=== PATIENT | female | born 1965 | race Caucasian/White ===

== ENCOUNTER 2016-07-02 05:54 | Outpatient (CLI) | payer BC ==
[~2016-07-02] VITALS: Ht 157.5 cm; Wt 90.3 kg
[~2016-07-02 05:54] MED LIST: ALPR0.254; ASP81TEC; ASPI-587 PO; CRS350T PO; CYCL10TA9 PO; GABA-488; GLIM2TAB PO; GLIM4TAB PO; HYDR1TAB66 PO; LISI10TA PO; LVT.025T PO; MELO-195 PO; NAPR-243 PO; NAPR500T3; OMEP20CA12 PO; PROM25SU10 PR; RANI150T11; TRM50T PO
--- OUTSIDE RECORDS SUMMARY | 2016-07-02 05:58 | XMS REPORT | Continuity of Care Document ---
Author Author [facility] Organization [facility] Address Unknown Phone Unavailable Care Team Providers Care Pediatric Associate Name Role Phone MARYCRUZ AKERS DO PCP Insurance Providers Payer Name Policy Number Subscriber Name Relationship [facility] [id number] Ivette Melendez 18 Self / Same As Patient Advance Directives Directive Response Recorded Date/Time Advance Directives No 12/18/15 1:01pm Health Care Power of Rn Private Duty No 12/18/15 1:01pm Organ Donor Yes 12/18/15 1:01pm Resuscitation Status Full Code 12/18/15 1:01pm Chief Complaint and Reason for Visit Chief Complaint Upper Extremity Reason for Visit [id number] Problems Active Problems Medical Problem Onset Date Status Right wrist sprain Unknown Acute Medications Current Home Medications Medication Dose Units Route Directions Days/Qty Instructions Start Date Lisinopril (Zestril) 10 Mg 10 Mg Oral Daily 08/06/09 Meloxicam (Mobic) 15 Mg 15 Mg Oral Bedtime 02/04/11 Hydrocodone Bit/Acetaminophen 1 Each 5-500 Mg Oral As Needed Glimepiride 4 Mg 6 Mg Oral Daily 01/11/15 Aspirin 81 Mg 81 Mg Oral Daily 01/11/15 Levothyroxine Sodium (Levothroid) 25 Mcg 25 Mcg Oral Daily 01/11/15 Omeprazole 20 Mg 20 Mg Oral Daily 30 01/11/15 Alprazolam 0.25 Mg 28 12/18/15 Naproxen 500 Mg 60 12/18/15 Ranitidine Hcl 150 Mg 60 12/18/15 Gabapentin 300 Mg 30 12/18/15 Past Home Medications Medication Directions Ordered Status Cyclobenzaprine Hcl (Flexeril) 10 Mg Tablet, 1 Each Oral Three Times A Day And Prn 01/29/09 Discontinued Naproxen 500 Mg Tablet, 1 Each Oral Three Times A Day And Prn 01/29/09 Discontinued Tramadol Hcl 50 Mg Tablet, 1 Tab Oral Four Times Daily 01/29/09 Discontinued Glimepiride 2 Mg Tablet, 4 Mg Oral Daily 08/06/09 Discontinued Aspirin 81 Mg Tabec, 08/06/09 Discontinued Promethazine Hcl 25 Mg Supp, 25 Mg Rectal Four Times Daily 08/07/09 Discontinued Carisoprodol 350 Mg Tablet, 1 Tab Oral Four Times Daily 08/07/09 Discontinued Tramadol Hcl 50 Mg Tab, 50 Mg Oral Every 4HRS 08/07/09 Discontinued Social History Social History Problem Response Recorded Date/Time Alcohol Use Denies Use 12/18/2015 1:01pm Recreational Drug Use No 12/18/2015 1:01pm Recent Foreign Travel No 12/18/2015 1:05pm Recent Infectious Disease Exposure No 12/18/2015 1:05pm Hospitalization with Isolation Denies 12/18/2015 1:05pm Smoking Status Never a Smoker 12/18/2015 1:01pm Query Response Start Date Stop Date Smoking Status Never a Smoker Hospital Discharge Instructions No hospital discharge instructions. Plan of Care Discharge Date 12/18/15 1:42pm Disposition 01 HOME, SELF-CARE Condition at Discharge Improved Instructions/Education Provided Wrist Injury (ED) Prescriptions See Medication Section Referrals MARYCRUZ AKERS DO - Primary Care Physician Additional Instructions/Education All discharge instructions reviewed with patient and/or family. Voiced understanding. Continue home medications as directed. Follow-up with your doctor this week for recheck. Return for worse pain, swelling, weakness or other concerns as needed. Functional Status No functional status results. Allergies, Adverse Reactions, Alerts Allergen Type Severity Reaction Status Last Updated Neuromuscular Blockers, Steroidal ([id number]) Allergy Unknown Active Immunizations No immunization records. Vital Signs Acute Vital Signs Vital Response Date/Time Temperature (Fahrenheit) 97 degrees F (97.6 - 99.5) 12/18/2015 1:05pm Temperature (Calculated Celsius) 36.1140 degrees C (36.4 - 37.5) 12/18/2015 1 :05pm Temperature Source Temporal 12/18/2015 1:05pm Pulse Rate (adult) 53 bpm (60 - 90) 12/18/2015 1:05pm Respiratory Rate 18 bpm (12 - 24) 12/18/2015 1:05pm O2 Sat by Pulse Oximetry 97 % (88 - 100) 12/18/2015 1:05pm Blood Pressure 134/74 mm Hg 12/18/2015 1:05pm Blood Pressure Mean 94 mm Hg 12/18/2015 1:05pm Pain Numeric Pain Scale 6 12/18/2015 1:05pm Height (Feet) 5 feet 12/18/2015 1:05pm Height (Inches) 2 inches 12/18/2015 1:05pm Height (Calculated Centimeters) 157.269236 cm 12/18/2015 1:05pm Weight (Pounds) 199 pounds 12/18/2015 1:05pm Weight (Calculated Kilograms) 90.398384 kilograms 12/18/2015 1:05pm Height 5 ft 2 in Weight 199 lb Body Mass Index 36.4 kg/m^2 Results No known relevant diagnostic tests, laboratory data and/or discharge summary. Procedures No known history of procedures. Encounters Encounter Location Arrival/Admit Date Discharge/Depart Date Attending Provider Departed Emergency Room [facility] 12/18/15 11:38am 08/30 1:42pm IMELDA ARAGON MD Recent Diagnosis
[2016-07-02] MEDS ORDERED: ALPR0.25 PO (13:03)
[2016-07-02] MEDS ORDERED: ECHI350C PO (13:03)
[2016-07-02] MEDS ORDERED: MELO15TA14 PO (13:03)
[2016-07-02] MEDS ORDERED: HYDR-3812 PO (13:03)
[2016-07-02] MEDS ORDERED: LEVO25TA5 PO (13:03)
[2016-07-02] MEDS ORDERED: RANI-515 PO (13:03)
[2016-07-02] MEDS ORDERED: GABA-488 PO (13:03)
[2016-07-02] MEDS ORDERED: NAPR500T PO (13:03)
== END 2016-07-02 13:08 ==
LOC: PREOP 05:54
PROVIDERS: ATTEND Surgery Pediatric Surgery
DX: Z01.818 Encounter for other preprocedural examination (principal); Z12.11 Encounter for screening for malignant neoplasm of colon

== ENCOUNTER 2016-07-04 09:46 | Day surgery (SDC) | payer BC ==
[~2016-07-04] VITALS: Ht 157.5 cm; Wt 90.3 kg
[~2016-07-04 09:46] MED LIST changes: +ALPR0.25 PO; +ECHI350C PO; +GABA-488 PO; +HYDR-3812 PO; +LEVO25TA5 PO; +MELO15TA14 PO; +NAPR500T PO; +RANI-515 PO
[2016-07-04] MEDS ORDERED: NS IV 500 ML 500 ML ONE ×2 (09:48→12:42)
--- OUTSIDE RECORDS SUMMARY | 2016-07-04 09:49 | XMS REPORT | Continuity of Care Document ---
Author Author [facility] Organization [facility] Address Unknown Phone Unavailable Care Team Providers Care Proposal Engineer Name Role Phone MARYCRUZ AKERS DO PCP Insurance Providers Payer Name Policy Number Subscriber Name Relationship [facility] [id number] Ivette Melendez 18 Self / Same As Patient Advance Directives Directive Response Recorded Date/Time Advance Directives No 12/18/15 1:01pm Health Care Power of Feather Trimmer No 12/18/15 1:01pm Organ Donor Yes 12/18/15 1:01pm Resuscitation Status Full Code 12/18/15 1:01pm Chief Complaint and Reason for Visit Chief Complaint Upper Extremity Reason for Visit [id number] Problems Active Problems Medical Problem Onset Date [...] Reaction Status Last Updated Neuromuscular Blockers, Steroidal ([id number]) Allergy Unknown Active Immunizations No immunization records. [...] 2 inches 12/18/2015 1:05pm Height (Calculated Centimeters) 157.523506 cm 12/18/2015 1:05pm Weight (Pounds) 199 pounds 12/18/2015 1:05pm Weight (Calculated Kilograms) 90.560792 kilograms 12/18/2015 1:05pm Height 5 ft 2 in Weight 199 lb Body Mass Index 36.4 kg/m^2 Results No known relevant diagnostic tests, laboratory data and/or discharge summary. Procedures No known history of procedures. Encounters Encounter Location Arrival/Admit Date Discharge/Depart Date Attending Provider Departed Emergency Room [facility] 12/18/15 11:38am 08/30 1:42pm IMELDA ARAGON MD Recent Diagnosis
--- OUTSIDE RECORDS SUMMARY | 2016-07-04 09:50 | XMS REPORT | Continuity of Care Document ---
Author Author [facility] Organization [facility] Address Unknown Phone Unavailable Care Team Providers Care Ore Grader Name Role Phone MARYCRUZ AKERS DO PCP Insurance Providers Payer Name Policy Number Subscriber Name Relationship [facility] [id number] Ivette Melendez 18 Self / Same As Patient Advance Directives Directive Response Recorded Date/Time Advance Directives No 12/18/15 1:01pm Health Care Power of Airplane Pilot Photogrammetry No 12/18/15 1:01pm Organ Donor Yes 12/18/15 1:01pm Resuscitation Status Full Code 12/18/15 1:01pm Chief Complaint and Reason for Visit Chief Complaint Upper Extremity Reason for Visit [id number] Problems Active Problems Medical Problem Onset Date [...] Reaction Status Last Updated Neuromuscular Blockers, Steroidal ([id number]) Allergy Unknown Active Immunizations No immunization records. [...] 2 inches 12/18/2015 1:05pm Height (Calculated Centimeters) 157.489535 cm 12/18/2015 1:05pm Weight (Pounds) 199 pounds 12/18/2015 1:05pm Weight (Calculated Kilograms) 90.112598 kilograms 12/18/2015 1:05pm Height 5 ft 2 in Weight 199 lb Body Mass Index 36.4 kg/m^2 Results No known relevant diagnostic tests, laboratory data and/or discharge summary. Procedures No known history of procedures. Encounters Encounter Location Arrival/Admit Date Discharge/Depart Date Attending Provider Departed Emergency Room [facility] 12/18/15 11:38am 08/30 1:42pm IMELDA ARAGON MD Recent Diagnosis
[2016-07-04] MEDS ORDERED: LIDOCAINE JELLY 2% (XYLOCAINE) 5 ML TUBE MM PRN (10:15)
[2016-07-04] MEDS ORDERED: NALOXONE 0.4 MG/ML 1 ML (NARCAN) VIAL IVP PRN (10:15)
[2016-07-04] MEDS ORDERED: FLUMAZENIL (ROMAZICON) 0.1 MG/ML 5 ML VIAL INJ PRN (10:15)
[2016-07-04 10:30] VITALS: BP 131/82
[2016-07-04] MEDS: NS IV 500 ML 500 ML IV PRN ×2 (10:45→12:55)
[2016-07-04] MEDS ORDERED: MIDAZOLAM 2 MG/2 ML (VERSED) VIAL ONE ×4 (11:47)
[2016-07-04] MEDS ORDERED: LIDOCAINE JELLY 2% (XYLOCAINE) 5 ML TUBE ONE (11:48)
[2016-07-04] MEDS ORDERED: fentaNYL INJECTION 100 MCG/2 ML AMP ONE ×2 (11:48)
[2016-07-04] MEDS: fentaNYL INJECTION 100 MCG/2 ML AMP IVP PRN ×4 (12:25→13:00)
[2016-07-04] MEDS: MIDAZOLAM 2 MG/2 ML (VERSED) VIAL IVP PRN ×4 (12:27→13:03)
--- NOTE | 2016-07-04 12:34 | Conscious Sedation/ASA ---
Conscious Sedation Pre-Proced Time Reviewed: 12:15 ASA Class: 2 Airway Mallampati Classification: ([place] appropriate class) I. II. III, IV Lungs Heart ASA score ASA 1: a normal healthy patient ASA 2: a patient with a mild systemic disease (mid diabetes, controlled hypertension, obesity ASA 3: a patient with a severe systemic disease that limits activity (angina , COPD, prior Myocardial infarction) ASA 4: a patient with an incapacitating disease that is a constant threat to life (CHF, renal failure) ASA 5: a moribund patient not expected to survive 24 hrs. (ruptured aneurysm) ASA 6: a declared brain patient whose organs are being harvested. For emergent operations, add the letter E after the classification Grade 2 Sedation Plan: Analgesia, Amnesia, Plan communicated to team members, Discussed options with patient/fam, Discussed risks with patient/fam Note The patient is an appropriate candidate to undergo the planned procedure, sedation, and anesthesia. The patient immediately re-assessed prior to indication. HUSSAIN BAIG MD Jul 04, 2016 12:34 pm
--- NOTE | 2016-07-04 12:35 | Progress Note-Pre Operative ---
Pre-Operative Progress Note H&P Reviewed The H&P was reviewed, patient examined and no changes noted. Date H&P Reviewed: Jul 04, 2016 Time H&P Reviewed: 12:15 Pre-Operative Diagnosis: screening colonoscopy HUSSAIN BAIG MD Jul 04, 2016 12:34 pm
[2016-07-04] MEDS ORDERED: morphine INJ 10 MG/ML 1ML (SYR OR VIAL) IV PRN (12:45)
[2016-07-04] MEDS ORDERED: HYDROcodone/APAP 5 MG/325 MG (LORTAB) TAB PO PRN (12:45)
[2016-07-04] MEDS ORDERED: ONDANSETRON 4 MG/2 ML (SDV) Z0FRAN IV PRN (12:45)
[2016-07-04] MEDS ORDERED: ACETAMINOPHEN 325 MG TABLET/CAPLET (TYLENOL) PO PRN (12:45)
--- NOTE | 2016-07-04 13:18 | Progress Note-Post Operative ---
Post-Operative Progess Note Pre-Operative Diagnosis screening colonoscopy Post-Operative Diagnosis chronic stage 1 ext and int hemorrhoids, mild sigmoid diverticulosis. Post-Op Procedure Note Date of Procedure: Jul 04, 2016 Name of Procedure: Colonoscopy Anesthesia Type CS Estimated blood loss (mL): HUSSAIN Hernandez MD Jul 04, 2016 1:18 pm
--- NOTE | 2016-07-04 13:19 | Discharge Inst-Surgical ---
D/C Lap Instructions-JOVANNI Follow Up 10 years Activity as tolerated High Fiber Diet 25g or more per day Avoid Alcohol, Caffeine, Spicy [place] and Acid foods. Drink 64 fluid oz or more of fluids per day. Symptoms to Report: Fever over 101 degree F, Nausea/Vomiting If any problems/questions: Contact your physician or go to Emergency Room HUSSAIN BAIG MD Jul 04, 2016 13:19
[2016-07-04 13:35] VITALS: BP 103/60
[2016-07-04 14:05] VITALS: BP 141/93
[2016-07-04 14:08] VITALS: BP 141/93
--- NOTE | 2016-07-05 12:50 | OPERATIVE REPORT ---
PROCEDURE PHYSICIAN: HUSSAIN VANN DATE OF PROCEDURE: 07/04/2016 ATTENDING TAXI DRIVER SUPERVISOR: Vivi Nick APRN. PREOPERATIVE DIAGNOSIS: Screening colonoscopy. POSTOPERATIVE DIAGNOSIS: 1. Chronic stage I external and internal hemorrhoids. 2. Mild sigmoid diverticulosis. PROCEDURE: Colonoscopy. SURGEON: Dr. Vann. ANESTHESIA: Conscious sedation. ESTIMATED BLOOD LOSS: Minimal. FINDINGS: 1. Chronic stage I external and internal hemorrhoids. 2. Mild sigmoid diverticulosis. 3. The remainder of the colon was normal. There were no polyps or any neoplasms identified. DISPOSITION: The patient tolerated the procedure well. Ms. Ivette Melendez is a 51-year-old female in need of a screening colonoscopy. She did have a colonoscopy 10 years ago, which she believes to be normal. She states that for the most part, she is doing well and does not report any major issues with diarrhea or constipation, as well as no red blood per rectum nor any dark tarry stools. She also does not report any family history of colon cancer. The patient was brought to the endoscopy suite, laid in the left lateral decubitus position. After adequate IV pain and sedative medications and conscious sedation anesthesia, a digital rectal examination was performed. Mild chronic stage I external and internal hemorrhoids were identified which were not actively edematous or inflamed and no bleeding. Normal sphincter tone was felt and there were no palpable masses. The endoscope was then intubated into the anus and the rectum gently insufflated. The endoscope was then advanced through the valves of Moran the rectum with no polyps or any neoplasms identified. Through the sigmoid colon a mild sigmoid diverticulosis identified. There were no mucosal inflammatory changes to indicate any active diverticulitis. The endoscope was then advanced into the remaining descending, transverse, and ascending colon to the cecum. These segments were normal. There were no polyps or any neoplasms identified throughout the colon and rectum. The endoscope was slowly withdrawn while taking a second look and suctioning of residual air with no additional findings. The patient tolerated the procedure well. We will have her continue with medical management with a high fiber diet with least 25 to 30 grams of fiber per day, as well as at least 64 fluid ounces of water daily to promote soft stools on a daily basis. She does not need another colonoscopy for another 10 years. Job ID: [id number] Dictated Date: 07/04/2016 13:18:17 Sub[address] Train Driver Date: 07/05/2016 12:44:08 / [email or web address]
== END 2016-07-04 14:36 | disposition home or self-care (01) ==
LOC: SDC 09:46
PROVIDERS: ATTEND Surgery Pediatric Surgery
DX: Z12.11 Encounter for screening for malignant neoplasm of colon (principal); K57.90 Diverticulosis of intestine, part unspecified, without perforation or abscess without bleeding; K64.0 First degree hemorrhoids
CPT/HCPCS: 84703

== ENCOUNTER 2016-10-25 10:06 | Emergency (ER) | payer BC ==
[~2016-10-25] VITALS: Ht 162.6 cm; Wt 90.7 kg
--- NOTE | 2016-10-25 10:53 | ED Abdominal Pain ---
General Chief Complaint: Abdominal/GI Problems Stated Complaint: ABDOMINAL PAIN Source of Information: Patient Exam Limitations: No Limitations History of Present Illness Time Seen By Provider: 10:52 Initial Comments To ER from Dr. Dr. Akers's office with reports of right lower quadrant abdominal pain. This began this morning at 04 100 awakening her from sleep. She did not have any associated nausea vomiting or diarrhea. She denies any dysuria. Timing/Duration: 4-6 Hours Severity/Quality: Moderate Location: RLQ Radiation: No Radiation Activities at Onset: None Associated Symptoms: No Fever/Chills, No Nausea/Vomiting Allergies and Home Medications Allergies Coded Allergies: Neuromuscular Blockers, Steroidal (Unverified Allergy, Unknown, 07/02/16) Home Medications Alprazolam 0.25 Mg Tablet, 0.25 MG PO BID PRN for ANXIETY, (Reported) Echinacea Purpurea Aerial 350 Mg Capsule, 350 MG PO DAILY, (Reported) Gabapentin 300 Mg Capsule, 300 MG PO HS, (Reported) Hydrocodone/Acetaminophen 1 Each Tablet, 1 EACH PO BID PRN for PAIN, (Reported) Levothyroxine Sodium 25 Mcg Tablet, 25 MCG PO DAILY, (Reported) Meloxicam 15 Mg Tablet, 15 MG PO DAILY, (Reported) Naproxen 500 Mg Tablet, 500 MG PO DAILY, (Reported) Ranitidine HCl 150 Mg Tablet, 150 MG PO DAILY PRN for HEARTBURN, (Reported) Review of Systems Constitutional: see HPI EENTM: No Symptoms Reported Respiratory: No Symptoms Reported Cardiovascular: See HPI Gastrointestinal: See HPI, Abdominal Pain, Denies Constipated, Denies Diarrhea , Denies Nausea Genitourinary: No Symptoms Reported, See HPI Musculoskeletal: no symptoms reported Skin: no symptoms reported Psychiatric/Neurological: No Symptoms Reported Endocrine: No Symptoms Reported Past Bxyoudw-Vaqyor-Iivmci Hx Patient Social History Recent Foreign Travel: No Contact w/Someone Who Travel: No Recent Hopitalizations: No Immunizations Up To Date Tetanus Booster (TDap): Unknown Date of Pneumonia Vaccine: Mar 26, 2016 Date of Influenza Vaccine: Mar 26, 2016 Seasonal Allergies Seasonal Allergies: Yes Surgeries HX Surgeries: Yes Surgeries: Section, Gallbladder Respiratory Hx Respiratory Disorders: Yes (SEASONAL ASTHMA) Cardiovascular Hx Cardiac Disorders: Yes Cardiac Disorders: Heart Murmur Neurological Hx Neurological Disorders: No Reproductive System Hx Reproductive Disorders: No Sexually Transmitted Disease: No HIV/AIDS: No Genitourinary Hx Genitourinary Disorders: No Gastrointestinal Hx Gastrointestinal Disorders: Yes Gastrointestinal Disorders: Gastroesophageal Reflux Musculoskeletal Hx Musculoskeletal Disorders: Yes Musculoskeletal Disorders: Arthritis, Chronic Back Pain Endocrine Hx Endocrine Disorders: Yes (BOARDERLINE DIABETIC) Endocrine Disorders: Hypothyroidsim HEENT HX ENT Disorders: Yes (GLASSES) Cancer Hx Cancer: No Psychosocial Hx Psychiatric Problems: Yes Behavioral Health Disorders: Anxiety, Depression Integumentary HX Skin/Integumentary Disorder: No Blood Transfusions Hx Blood Disorders: No Adverse Reaction to a Blood Tr: No (N/A) Physical Exam Vital Signs VS - Last 72 Hours, by Label 10/25/16 10:40 Temp 99.8 Pulse 71 Resp 18 B/P (MAP) 130/65 Pulse Ox 100 O2 Delivery Room Air Capillary Refill : General Appearance: WD/WN, no apparent distress HEENT: PERRL/EOMI, normal ENT inspection Respiratory: no respiratory distress, no accessory muscle use Gastrointestinal: normal bowel sounds, soft, tenderness (right lower quadrant) Extremities: normal range of motion, non-tender Neurologic/Psychiatric: alert, normal mood/affect, oriented x 3 Skin: normal color, warm/dry Progress/Results/Core Measures Results/Orders Lab Results Laboratory Tests Test 10/25/16 10:50 10/25/16 11:55 Range/Units White Blood Count 3.8 L 4.3-11.0 10^3/uL Red Blood Count 5.12 4.35-5.85 10^6/uL Hemoglobin 14.8 11.5-16.0 G/DL Hematocrit 44 35-52 % Mean Corpuscular Volume 85 80-99 FL Mean Corpuscular Hemoglobin 29 25-34 PG Mean Corpuscular Hemoglobin Concent 34 32-36 G/DL Red Cell Distribution Width 13.3 10.0-14.5 % Platelet Count 174 130-400 10^3/uL Mean Platelet Volume 10.9 H 7.4-10.4 FL Neutrophils (%) (Auto) 64 42-75 % Lymphocytes (%) (Auto) 18 12-44 % Monocytes (%) (Auto) 17 H 0-12 % Eosinophils (%) (Auto) 1 0-10 % Basophils (%) (Auto) 1 0-10 % Neutrophils # (Auto) 2.4 1.8-7.8 X 10^3 Lymphocytes # (Auto) 0.7 L 1.0-4.0 X 10^3 Monocytes # (Auto) 0.7 0.0-1.0 X 10^3 Eosinophils # (Auto) 0.0 0.0-0.3 10^3/uL Basophils # (Auto) 0.0 0.0-0.1 10^3/uL Sodium Level 139 135-145 MMOL/L Potassium Level 4.2 3.6-5.0 MMOL/L Chloride Level 106 98-107 MMOL/L Carbon Dioxide Level 22 21-32 MMOL/L Anion Gap 11 5-14 MMOL/L Blood Urea Nitrogen 14 7-18 MG/DL Creatinine 0.86 0.60-1.30 MG/DL Estimat Glomerular Filtration Rate > 60 BUN/Creatinine Ratio 16 Glucose Level 181 H 70-105 MG/DL Calcium Level 9.4 8.5-10.1 MG/DL Total Bilirubin 0.4 0.1-1.0 MG/DL Aspartate Amino Transf (AST/SGOT) 19 5-34 U/L Alanine Aminotransferase (ALT/SGPT) 18 0-55 U/L Alkaline Phosphatase 73 40-136 U/L Total Protein 7.5 6.4-8.2 G/DL Albumin 4.2 3.2-4.5 G/DL Urine Color YELLOW Urine Clarity CLEAR Urine pH 6 5-9 Urine Specific [place] 1.020 1.016-1.022 Urine Protein 3+ H NEGATIVE Urine Glucose (UA) NEGATIVE NEGATIVE Urine Ketones 2+ H NEGATIVE Urine Nitrite NEGATIVE NEGATIVE Urine Bilirubin NEGATIVE NEGATIVE Urine Urobilinogen NORMAL NORMAL MG/DL Urine Leukocyte Esterase 1+ H NEGATIVE Urine RBC (Auto) 1+ H NEGATIVE Urine RBC NONE /HPF Urine WBC 0-2 /HPF Urine Squamous Epithelial Cells 5-10 /HPF Urine Crystals NONE /LPF Urine Bacteria FEW H /HPF Urine Casts NONE /LPF Urine Mucus SMALL H /LPF Urine Culture Indicated NO My Orders Orders - ELIUD TNA APRN Ua Culture If Indicated (10/25/16 10:41) Urine Bedside (10/25/16 10:41) Cbc With Automated Diff (10/25/16 10:50) Comprehensive Metabolic Panel (10/25/16 10:50) Ct Abd/Pelv W (Appendicitis) (10/25/16 10:50) Ns Iv 1000 Ml (Sodium Chloride 0.9%) (10/25/16 11:00) Iohexol Injection (Omnipaque 350 Mg/Ml 1 (10/25/16 11:00) Sodium Chloride Flush (Catheter Flush Sy (10/25/16 11:00) Ns (Ivpb) (Sodium Chloride 0.9% Ivpb Bag (10/25/16 11:00) Ketorolac Injection (Toradol Injection) (10/25/16 12:45) Us Non Ob Pelvis Comp/Transvag (10/25/16 12:32) Medications Given in ED Current Medications Medications Dose Ordered Sig/Maryellen Route Start Time Stop Time Status Last Admin Dose Admin Iohexol 100 ml ONCE ONCE IV 10/25/16 11:00 10/25/16 11:01 DC 10/25/16 11:14 100 ML Ketorolac Tromethamine 30 mg ONCE ONCE IVP 10/25/16 12:45 10/25/16 12:46 DC 10/25/16 12:59 30 MG Sodium Chloride 10 ml NEEDED PRN IV 10/25/16 11:00 10/25/16 11:14 10 ML Sodium Chloride 100 ml ONCE ONCE IV 10/25/16 11:00 10/25/16 11:01 DC 10/25/16 11:14 80 ML Vital Signs/I&O Vital Sign - Last 12Hours 10/25/16 10:40 Temp 99.8 Pulse 71 Resp 18 B/P (MAP) 130/65 Pulse Ox 100 O2 Delivery Room Air Diagnostic Imaging Diagonstic Imaging: CT Comments NAME: JERAMIE HUMPHREY [facility] REC#: [id number] PT STATUS: REG ER : 1965 PHYSICIAN: ELIUD TAN DISTANCE EDUCATION DIRECTOR ADMIT DATE: 10/25/16/ER Draft Date of Exam:10/25/16 CT ABD/PELV W (APPENDICITIS) PROCEDURE: CT abdomen and pelvis with contrast, rule out appendicitis. TECHNIQUE: Multiple contiguous axial images were obtained through the abdomen and pelvis after the administration of intravenous contrast. INDICATION: Right-sided abdominal pain today, fever, nausea, previous cholecystectomy. COMPARISON STUDY: CT of the abdomen from 07-18-15. FINDINGS: The lung bases are clear. There is questionable fatty infiltration of the liver. Contrast was administered so it is little difficult to tell for sure. No focal hepatic abnormalities are present. The gallbladder is absent. There is no duct dilatation. The spleen, pancreas, adrenal glands, and kidneys appear normal. There is a normal appearance of the appendix. The endometrium of the uterus appears to be slightly thickened. On the left side, there is a round high density area within this. Endometrial carcinoma cannot be excluded and an ultrasound is recommended. Simple appearing ovarian cysts are present. No ascites, free air or abnormal adenopathy is present. The bowel loops appear normal. Osseous structures demonstrate minimal facet changes at L5-S1. IMPRESSION: 1. The appendix appears normal. 2. There is some thickening of the endometrium. On the left side, there is a round mass in the endometrium. Recommend ultrasound for further evaluation. Dictated on workstation # [id number] Dict: 10/25/16 1144 Trans: 10/25/16 1208 [facility] [id number] Interpreted by: MARY TORRES MD Electronically signed by: Departure Communication Progress Notes 1349- I discussed reports which show a thickened endometrium with patient. radiology states this may be upon the nature but would warrant gynecology follow-up. Impression Impression: Primary Impression: Nonspecific abdominal pain Disposition: 01 HOME, SELF-CARE Condition: Stable Departure-Patient Inst. Decision time for Depature: 13:50 Referrals: CHANDA DURAN RICHARD A DO (PCP/Family) Primary Care Physician TODD VELASQUEZ MD, ERIN N MD SHAW, ANGELA C DO Patient Instructions: Acute Abdomen (Belly Pain), Adult (DC) Add. Discharge Instructions: 1. Return to ER for any worsening pain 2. Medication as directed 3. Follow-up with supervisor putty and caluking listed All discharge instructions reviewed with patient and/or family. Voiced understanding. Scripts Hydrocodone/Acetaminophen ([place] 5-325 Tablet) 1 Each Tablet 1 EACH PO Q4H Y for PAIN-MODERATE, #10 TAB Prov: ELIUD TAN APRN 10/25/16 Copy Copies To 1: MARYCRUZ AKERS PETER J APRN October 25, 2016 10:53
[2016-10-25 10:58] LABS: BASOPHILS % (AUTO) 1 % (0-10); EOSINOPHILS % (AUTO) 1 % (0-10); LYMPHOCYTES # (AUTO) 0.7 X 10^3 (1.0-4.0); LYMPHOCYTES % (AUTO) 18 % (12-44); MEAN CORPUSCULAR HEMOGLOBIN 29 PG (25-34); MEAN CORPUSCULAR HGB CONC 34 G/DL (32-36); MEAN CORPUSCULAR VOLUME 85 FL (80-99); MEAN PLATELET VOLUME 10.9 FL (7.4-10.4); MONOCYTES # (AUTO) 0.7 X 10^3 (0.0-1.0); MONOCYTES % (AUTO) 17 % (0-12); NEUTROPHILS # (AUTO) 2.4 X 10^3 (1.8-7.8); NEUTROPHILS % (AUTO) 64 % (42-75); PLATELET COUNT 174 10^3/uL (130-400); RED BLOOD COUNT 5.12 10^6/uL (4.35-5.85); RED CELL DISTRIBUTION WIDTH 13.3 % (10.0-14.5); WHITE BLOOD COUNT 3.8 10^3/uL (4.3-11.0)
[2016-10-25] MEDS ORDERED: IOHEXOL 350 MG/ML 100 ML (OMNIPAQUE 350) VIAL IV ONE (11:00)
[2016-10-25] MEDS ORDERED: NS IV 1000 ML 1,000 ML IV SCH (11:00)
[2016-10-25] MEDS ORDERED: NS 100 ML (IVPB) BAG IV ONE (11:00)
[2016-10-25] MEDS ORDERED: CATHETER FLUSH 10 ML SYR IV PRN (11:00)
[2016-10-25 11:19] LABS: ALANINE AMINOTRANSFERASE 18 U/L (0-55); ALBUMIN 4.2 G/DL (3.2-4.5); ANION GAP 11 MMOL/L (5-14); ASPARTATE AMINO TRANSFERASE 19 U/L (5-34); BILIRUBIN,TOTAL 0.4 MG/DL (0.1-1.0); BLOOD UREA NITROGEN 14 MG/DL (7-18); BUN/CREATININE RATIO 16; CALCIUM 9.4 MG/DL (8.5-10.1); CARBON DIOXIDE 22 MMOL/L (21-32); CHLORIDE 106 MMOL/L (98-107); CREATININE SERUM 0.86 MG/DL (0.60-1.30); GFR ESTIMATED > 60; GLUCOSE 181 MG/DL (70-105); POTASSIUM 4.2 MMOL/L (3.6-5.0); SODIUM 139 MMOL/L (135-145); TOTAL PROTEIN 7.5 G/DL (6.4-8.2)
[2016-10-25 12:07] LABS: BILIRUBIN,URINE NEGATIVE (NEGATIVE); KETONES,URINE 2+ (NEGATIVE); LEUKOCYTE ESTERASE ,URINE 1+ (NEGATIVE); NITRITE,URINE NEGATIVE (NEGATIVE); PH,URINE 6 (5-9); PROTEIN,URINE 3+ (NEGATIVE); UROBILINOGEN,URINE NORMAL (NORMAL)
--- NOTE | 2016-10-25 12:09 | Diagnostic Imaging Report ---
PROCEDURE: CT abdomen and pelvis with contrast, rule out appendicitis. TECHNIQUE: Multiple contiguous axial images were obtained through the abdomen and pelvis after the administration of intravenous contrast. INDICATION: Right-sided abdominal pain today, fever, nausea, previous cholecystectomy. COMPARISON STUDY: CT of the abdomen from 07-18-15. FINDINGS: The lung bases are clear. There is questionable fatty infiltration of the liver. Contrast was administered so it is little difficult to tell for sure. No focal hepatic abnormalities are present. The gallbladder is absent. There is no duct dilatation. The spleen, pancreas, adrenal glands, and kidneys appear normal. There is a normal appearance of the appendix. The endometrium of the uterus appears to be slightly thickened. On the left side, there is a round high density area within this. Endometrial carcinoma cannot be excluded and an ultrasound is recommended. Simple appearing ovarian cysts are present. No ascites, free air or abnormal adenopathy is present. The bowel loops appear normal. Osseous structures demonstrate minimal facet changes at L5-S1. IMPRESSION: 1. The appendix appears normal. 2. There is some thickening of the endometrium. On the left side, there is a round mass in the endometrium. Recommend ultrasound for further evaluation. Dictated by: Dictated on workstation # [id number]
[2016-10-25 12:19] LABS: WBC,URINE 0-2 /HPF
[2016-10-25] MEDS ORDERED: KETOROLAC 30 MG/ML VIAL IVP ONE (12:45)
--- NOTE | 2016-10-25 13:47 | Diagnostic Imaging Report ---
EXAM: Transabdominal and transvaginal pelvic ultrasound. INDICATION: Perimenopausal bleeding. FINDINGS: The uterus is 9.6 x 4.6 x 5.1 CM. The endometrial stripe is 1.3 CM in thickness which is abnormal for a postmenopausal woman. No myometrial masses are identified. No internal vascularity within the right myometrium or endometrium is seen. The endometrium has a lobulated contour concerning for an underlying lesion. The ovaries are obscured by bowel gas. IMPRESSION: There is endometrial thickening with lobulation of its contour concerning for underlying endometrial carcinoma, hyperplasia or polyp. Gynecologic evaluation is recommended. The findings were discussed with Dr. Gilmore at time of dictation by Dr. Juárez. Dictated by: Dictated on workstation # [id number]
[2016-10-25] MEDS ORDERED: HYDR-757 PO (13:51)
[2016-10-25 14:06] VITALS: BP 130/65
== END 2016-10-25 14:06 | disposition home or self-care (01) ==
LOC: EDUNIT# 10:06 → ER 10:10
DX: R10.31 Right lower quadrant pain (principal); R93.8 Abnormal findings on diagnostic imaging of other specified body structures; Z79.899 Other long term (current) drug therapy
CPT/HCPCS: 36415; 74177; 76830; 76856; 80053; 81000; 84703; 85025; 96361; 96374

== ENCOUNTER 2016-11-09 05:49 | Outpatient (CLI) | payer BC ==
[~2016-11-09] VITALS: Ht 157.5 cm; Wt 86.2 kg
[~2016-11-09 05:49] MED LIST changes: +HYDR-757 PO
[2016-11-09] MEDS ORDERED: GLIM4TAB PO (14:30)
[2016-11-09] MEDS ORDERED: HYDR-700 PO (14:30)
[2016-11-09] MEDS ORDERED: LORA10TA7 PO (14:30)
[2016-11-09] MEDS ORDERED: LISI10TA2 PO (14:30)
== END 2016-11-09 14:42 ==
LOC: PREOP 05:49
PROVIDERS: ATTEND Obstetrics & Gynecology
DX: Z01.818 Encounter for other preprocedural examination (principal); N95.0 Postmenopausal bleeding; N93.8 Other specified abnormal uterine and vaginal bleeding; D64.9 Anemia, unspecified

== ENCOUNTER 2016-11-14 11:02 | Day surgery (SDC) | payer BC ==
[~2016-11-14] VITALS: Ht 157.5 cm; Wt 86.2 kg
[~2016-11-14 11:02] MED LIST changes: +HYDR-700 PO; +LISI10TA2 PO; +LORA10TA7 PO
[2016-11-14] MEDS ORDERED: ceFAZolin 1,000 MG (ANCEF) VIAL ONE (11:26)
[2016-11-14] MEDS ORDERED: NS (IVPB) 50 ML ONE (11:26)
[2016-11-14] MEDS ORDERED: ceFAZolin 1,000 MG (ANCEF) VIAL IV ONE (11:30)
[2016-11-14] MEDS ORDERED: ONDANSETRON 4 MG/2 ML (SDV) Z0FRAN ONE (11:44)
[2016-11-14] MEDS ORDERED: SEVOFLURANE (ULTANE) 15 ML INHAL SOLN ONE (11:44)
[2016-11-14] MEDS ORDERED: LIDOCAINE PF 2% 5 ML (XYLOCAINE) VIAL ONE (11:44)
[2016-11-14] MEDS ORDERED: proPOfol 200 MG/20 ML (DIPRIVAN) VIAL IV ONE (11:44)
[2016-11-14] MEDS ORDERED: LACTATED RINGERS 1,000 ML IV ONE (11:44)
[2016-11-14] MEDS ORDERED: MIDAZOLAM 2 MG/2 ML (VERSED) VIAL ONE (11:44)
[2016-11-14] MEDS ORDERED: fentaNYL INJECTION 100 MCG/2 ML AMP ONE (11:44)
[2016-11-14 11:46] VITALS: BP 128/70
--- NOTE | 2016-11-14 11:53 | Progress Note-Pre Operative ---
Pre-Operative Progress Note H&P Reviewed The H&P was reviewed, patient examined and no changes noted. Date H&P Reviewed: November 14, 2016 Time H&P Reviewed: 11:53 Pre-Operative Diagnosis: DuB/postmenopausal bleeding/menorrhagia TODD VELASQUEZ MD November 14, 2016 11:53 am
[2016-11-14] MEDS ORDERED: D5 LR IV SOLUTION 1,000 ML IV SCH (11:54)
--- NOTE | 2016-11-14 11:54 | Progress Note-Post Operative ---
Post-Operative Progess Note Surgeon (s)/Human Factors Scientist (s) Surgeon TODD VELASQUEZ MD Human Factors Scientist: N/A Pre-Operative Diagnosis DuB/postmenopausal bleeding/menorrhagia Post-Operative Diagnosis same with multiple intrauterine polypoid masses and with pathology pending Procedure & Operative Findings Date of Procedure 11/14/16 Procedure Performed/Findings hysteroscopy with directed biopsy and D&C/pathology pending Anesthesia Type Gen. Estimated Blood Loss Estimated blood loss (mL): minimal Specimens/Packing Specimens Removed directed biopsy and endometrial curettings Packing: none TODD VELASQUEZ MD November 14, 2016 11:54 am
[2016-11-14] MEDS ORDERED: HYDR-3812 PO (11:57)
--- NOTE | 2016-11-14 11:58 | Discharge Instructions ---
Discharge Instructions Discharge Medications New, Converted or Re-Newed RX: RX on Chart Patient Instructions Patient Instructions: as directed Return to The Hospital For: as directed Activity & Diet Discharge Diet: No Restrictions Activity as Tolerated: Yes Orders-Post D/C & Referrals Follow Up Appt: Call to make follow up appt. for patient in 2 weeks. Activity: Rest for 24 hours, than as tolerated. Diet: As tolerated-Clear Liquids only if nauseated. May shower or tub bathe as desired. No driving for 24 hours, no alcoholic beverages for 24 hours, and nothing per vagina (no tampons, douching, or intercourse) for 2 weeks. Patient to return to the clinic as soon as possible for: Temperature greater than 101F, Severe Pain, Foul discharge from incision or vagina, Excessive Bleeding (more than a period). TODD VELASQUEZ MD November 14, 2016 11:58 am
[2016-11-14] MEDS ORDERED: PROMETHAZINE INJ 25 MG/ML (PHENERGAN) AMP IM ONE (12:00)
[2016-11-14] MEDS ORDERED: MEPERIDINE (DEMEROL) INJ 100 MG/ML IM ONE (12:00)
[2016-11-14] MEDS ORDERED: HYDROcodone/APAP 10 MG/325 MG (LORTAB) TAB PO PRN (12:00)
[2016-11-14] MEDS ORDERED: ONDANSETRON 4 MG/2 ML (SDV) Z0FRAN IVP PRN ×2 (12:00→13:15)
[2016-11-14] MEDS ORDERED: KETOROLAC 30 MG/ML VIAL IVP ONE (12:00)
[2016-11-14] MEDS: morphine INJ 10 MG/ML 1ML (SYR OR VIAL) IVP PRN ×2 (13:31→13:34)
[2016-11-14 13:55] VITALS: BP 150/90
[2016-11-14] MEDS ORDERED: LACTATED RINGERS 1,000 ML IV PRN (14:02)
[2016-11-14 14:25] VITALS: BP 148/87
[2016-11-14 14:55] VITALS: BP 137/79
[2016-11-14 16:50] VITALS: BP 137/79
--- NOTE | 2016-11-15 06:54 | OPERATIVE REPORT ---
DATE OF SERVICE: 11/14/2016 PREOPERATIVE DIAGNOSES: 1. Postmenopausal bleeding/dysfunction. 2. Uterine bleeding/menorrhagia. POSTOPERATIVE DIAGNOSES: 1. Postmenopausal bleeding/dysfunction. 2. Uterine bleeding/menorrhagia. 3. Multiple uterine polyps and a submucosal fibroid with pathology pending. OPERATIVE PROCEDURE: Hysteroscopically directed biopsies and polypectomies as well as dilation and curettage. OPERATIVE DESCRIPTION: With the patient in the supine position under satisfactory general anesthesia, she was repositioned in the dorsal lithotomy position in Ross stirrups and prepped and draped in the usual fashion for vaginal surgery. The urinary bladder was emptied with a straight catheter. A weighted speculum placed in the posterior fornix of the vagina, cervix exposed and grasped anteriorly with a single tooth tenaculum. The uterus was sounded to 9 cm with the uterine sound. The cervix was then serially dilated with Mumtaz dilators to accommodate a hysteroscope, which was introduced and using LR as the distending medium, the endometrial cavity was examined. There were multiple polypoid masses emanating from the posterior and lower right anterior and right lower posterior uterine wall. These were directly biopsied and directly removed under hysteroscopic direct vision. There was a large submucosal fibroid anteriorly distending the anterior uterine wall into the uterine cavity. Both tuberosities were visible and appeared normal. The endometrial cavity was curettaged after removal of the polyps. That tissue was sent to pathology for permanent section as endometrial curettings. The hysteroscope was reintroduced. There was no remaining abnormal appearing tissue. There was no significant bleeding. The procedure at this point was complete and terminated. The hysteroscope was removed as was the tenaculum. There was some bleeding from the anterior lip of the cervix from the tenaculum. This was controlled with [id number] suture of 2-0 Vicryl. Hemostasis was now complete. Sponge and needle counts were correct. Estimated blood loss was minimal. The patient was uneventfully awaken from her general anesthesia and transferred to the recovery room in stable condition with plans for discharge home PAR and follow up in clinic in regard to the pathology. Job ID: [id number] DocumentID: [id number] Dictated Date: 11/14/2016 12:58:42 Precision Filer Hand Date: 11/14/2016 20:57:12 Dictated By: TODD VELASQUEZ MD
== END 2016-11-14 16:50 | disposition home or self-care (01) ==
LOC: SDC 11:02
PROVIDERS: ATTEND Obstetrics & Gynecology
DX: N84.0 Polyp of corpus uteri (principal); D25.0 Submucous leiomyoma of uterus; N95.0 Postmenopausal bleeding; J45.909 Unspecified asthma, uncomplicated; F32.9 Major depressive disorder, single episode, unspecified; E66.9 Obesity, unspecified; E03.9 Hypothyroidism, unspecified; Z79.899 Other long term (current) drug therapy; Z68.34 Body mass index [BMI] 34.0-34.9, adult
CPT/HCPCS: 82962; 84703; 87081

== ENCOUNTER 2017-04-14 11:52 | Emergency (ER) | payer BC, OTHER ==
[~2017-04-14] VITALS: Ht 157.5 cm; Wt 90.3 kg
--- NOTE | 2017-04-14 12:49 | ED Abdominal Pain ---
General Chief Complaint: Abdominal/GI Problems Stated Complaint: R SIDE STOMACH PAIN Nursing Triage Note: PT REPORTS SHE TRIED TO ROLL OVER IN BED THIS AM AND FELT A "POP" IN THE R UPPER PART OF HER ABD. SHE IS NOW C/O PAIN AND TENDERNESS TO AREA. PT DENIES N/V/D OR FEVER. Sepsis Screen: No Definite Risk Source of Information: Patient Exam Limitations: No Limitations History of Present Illness Time Seen By Provider: 12:49 Initial Comments 52-year-old female patient presents to the emergency department with complaints of right upper abdominal pain/rib pain after turning over in bed. Reports feeling a "pop" and had instant pain area denies shortness of air, nausea, vomiting, diarrhea. Denies fevers. Patient states she is supposed to work tonight and wanted to make sure everything was okay. Location Injury Occurred: home Timing/Duration: 1-3 Hours, Constant Activities at Onset: Other (rolled over in bed) Modifying Factors: Worsens With Movement, Worsens With Palpation Allergies and Home Medications Allergies Coded Allergies: Neuromuscular Blockers, Steroidal (Unverified Allergy, Unknown, 07/02/16) Home Medications Cyclobenzaprine HCl 10 Mg Tablet, 10 MG PO Q8H PRN for SPASMS, #10 Ref 0 Prescribed by: BRENNA FERNANDEZ on 04/14/17 1302 Gabapentin 300 Mg Capsule, 300 MG PO HS, (Reported) Glimepiride 4 Mg Tablet, 2 MG PO DAILY, (Reported) take 1/2 of 4mg tab Hydrocodone/Acetaminophen 1 Each Tablet, 1 EACH PO BID PRN for PAIN, #30 Prescribed by: TODD RUFFIN on 11/14/16 1157 Hydroxyzine HCl 25 Mg Tablet, 25 MG PO BID PRN for ANXIETY, (Reported) Levothyroxine Sodium 25 Mcg Tablet, 25 MCG PO DAILY, (Reported) Lisinopril 10 Mg Tablet, 10 MG PO DAILY, (Reported) Loratadine 10 Mg Tablet, 10 MG PO DAILY PRN for allergies, (Reported) Naproxen 500 Mg Tablet, 500 MG PO BID, (Reported) Naproxen 500 Mg Tablet, 500 MG PO BID PRN for pain, #20 Ref 0 Prescribed by: BRENNA FERNANDEZ on 04/14/17 1302 Ranitidine HCl 150 Mg Tablet, 150 MG PO DAILY PRN for HEARTBURN, (Reported) Review of Systems Constitutional: No chills, No dizziness, No fever, No malaise Respiratory: Denies Cough, Denies Orthopnea, Denies Shortness of Air, Denies SOA With Exertion Cardiovascular: Denies Chest Pain, Denies Lightheadedness, Denies Syncope Gastrointestinal: See HPI, Denies Abdomen Distended, Denies Blood Streaked Stools, Denies Constipated, Denies Diarrhea, Denies Nausea, Denies Rectal Bleeding, Denies Vomiting Genitourinary: No Symptoms Reported Musculoskeletal: see HPI, No back pain Skin: No change in color, No lumps Psychiatric/Neurological: Denies Numbness, Denies Paresthesia, Denies Tingling , Denies Weakness All Other Systems Reviewed Negative Unless Noted: Yes (Negative excepted noted.) Past Gxwnomx-Vvfelq-Vnjtjn Hx Patient Social History Alcohol Use: Denies Use Recreational Drug Use: No Smoking Status: Never a Smoker 2nd Hand Smoke Exposure: No Recent Foreign Travel: No Contact w/Someone Who Travel: No Recent Infectious Disease Expo: No Recent Hopitalizations: No Physical Abuse: No Sexual Abuse: No Immunizations Up To Date Tetanus Booster (TDap): Unknown Date of Pneumonia Vaccine: Mar 26, 2016 Date of Influenza Vaccine: Mar 26, 2016 Seasonal Allergies Seasonal Allergies: Yes Surgeries History of Surgeries: Yes (C/S x2) Surgeries: Section, Gallbladder Respiratory History of Respiratory Disorde: Yes (SEASONAL ASTHMA) Respiratory Disorders: Asthma Cardiovascular History of Cardiac Disorders: Yes Cardiac Disorders: Heart Murmur Neurological History of Neurological Disord: No Reproductive System Hx Reproductive Disorders: No Sexually Transmitted Disease: No HIV/AIDS: No 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 Gastrointestinal History of Gastrointestinal Di: Yes Gastrointestinal Disorders: Gastroesophageal Reflux Musculoskeletal History of Musculoskeletal Dis: Yes Musculoskeletal Disorders: Arthritis, Chronic Back Pain Endocrine History of Endocrine Disorders: Yes (BORDERLINE DIABETES) Endocrine Disorders: Hypothyroidsim HEENT Loss of Vision: Bilateral Hearing Impairment: Denies Cancer History of Cancer: No Psychosocial History of Psychiatric Problem: Yes Behavioral Health Disorders: Anxiety, Depression Suicide Risk Score: 0 Integumentary History of Skin or Integumenta: No Blood Transfusions History of Blood Disorders: No Adverse Reaction to a Blood Tr: No (N/A) Reviewed Nursing Assessment Reviewed/Agree w Nursing PMH: Yes Family Medical History Significant Family History: No Pertinent Family Hx Physical Exam Vital Signs VS - Last 72 Hours, by Label 04/14/17 12:15 Temp 95.3 Pulse 74 Resp 16 B/P (MAP) 133/84 Pulse Ox 99 O2 Delivery Room Air Capillary Refill : Less Than 3 Seconds General Appearance: WD/WN, no apparent distress, other (patient moves about the bed without difficulty. raises self from lying to sitting without difficulty.) HEENT: PERRL/EOMI, pharynx normal Neck: supple, normal inspection Respiratory: lungs clear, normal breath sounds, no respiratory distress, no accessory muscle use, other (rt lower anterior/lateral/posterior rib tenderness without deformity, swelling, or ecchymosis.) Cardiovascular: normal peripheral pulses, regular rate, rhythm, no murmur Gastrointestinal: normal bowel sounds, soft, no organomegaly, No guarding, No rebound, tenderness (mild right subcostal tenderness.) Extremities: no pedal edema, normal capillary refill Back: normal inspection, no vertebral tenderness Neurologic/Psychiatric: alert, normal mood/affect, oriented x 3 Skin: normal color, warm/dry Progress/Results/Core Measures Results/Orders My Orders Orders - BRENNA FERNANDEZ Cyclobenzaprine Tablet (Flexeril Tablet) (04/14/17 12:58) Ibuprofen Tablet (Motrin Tablet) (04/14/17 12:58) Vital Signs/I&O Vital Sign - Last 12Hours 04/14/17 12:15 Temp 95.3 Pulse 74 Resp 16 B/P (MAP) 133/84 Pulse Ox 99 O2 Delivery Room Air Blood Pressure Mean: 100 Departure Communication (Admissions) Progress Notes Patient seen and evaluated. patient given 1 dose of motrin and flexeril in the ED. Dsch to home. Impression Impression: Primary Impression: Muscle strain of chest wall Qualified Codes: S29.011A - Strain of muscle and tendon of front wall of thorax, initial encounter Disposition: HOME, SELF-CARE Condition: Improved Departure-Patient Inst. Decision time for Depature: 13:00 Referrals: MARYCRUZ AKERS DO (PCP/Family) Primary Care Physician Patient Instructions: Muscle Strain (DC) Add. Discharge Instructions: All discharge instructions reviewed with patient and/or family. Voiced understanding. Medications as instructed. Tylenol extra strength over-the- counter as directed for pain. Heating pads or packs as needed. Avoid pushing, pulling, twisting, bending, climbing 3-5 days, increase activity as tolerated. Consider seeing a chiropractor if pain continues. Follow-up with your family practitioner for recheck if no improvement in symptoms in 7-10 days. Return to the emergency department for worsened symptoms or any other concerns. Scripts Naproxen (Naprosyn) 500 Mg Tablet 500 MG PO BID Y for pain, #20 TAB 0 Refills Prov: BRENNA FERNANDEZ 04/14/17 Cyclobenzaprine HCl (Cyclobenzaprine HCl) 10 Mg Tablet 10 MG PO Q8H Y for SPASMS, #10 TAB 0 Refills Prov: BRENNA FERNANDEZ 04/14/17 Work/School Note: Work Release Form Date Seen in the Emergency Department: Apr 14, 2017 Return to Work: Apr 16, 2017 BRENNA FERNANDEZ Apr 14, 2017 12:49
[2017-04-14] MEDS ORDERED: CYCLOBENZAPRINE 10 MG (FLEXERIL) TAB PO STA (12:58)
[2017-04-14] MEDS ORDERED: IBUPROFEN 800 MG (MOTRIN) TAB PO STA (12:58)
[2017-04-14] MEDS ORDERED: NAPR500T PO (13:02)
[2017-04-14] MEDS ORDERED: CYCL10TA9 PO (13:02)
[2017-04-14 13:03] VITALS: BP 133/84
== END 2017-04-14 13:03 | disposition home or self-care (01) ==
LOC: EDUNIT# 11:52 → ER 11:53
DX: S29.011A Strain of muscle and tendon of front wall of thorax, initial encounter (principal); F32.9 Major depressive disorder, single episode, unspecified; F41.9 Anxiety disorder, unspecified; K21.9 Gastro-esophageal reflux disease without esophagitis; E03.9 Hypothyroidism, unspecified; M19.90 Unspecified osteoarthritis, unspecified site; J45.909 Unspecified asthma, uncomplicated; Z87.59 Personal history of other complications of pregnancy, childbirth and the puerperium; Z79.84 Long term (current) use of oral hypoglycemic drugs; X50.0XXA Overexertion from strenuous movement or load, initial encounter
CPT/HCPCS: 99282

== ENCOUNTER 2017-05-20 04:10 | Emergency (ER) | payer OTHER ==
[~2017-05-20] VITALS: Ht 157.5 cm; Wt 86.6 kg
[~2017-05-20 04:10] MED LIST changes: -NAPR500T3; +NAPR500T4
--- NOTE | 2017-05-20 04:37 | ED Fall/Injury ---
General Chief Complaint: Trauma-Non Activation Stated Complaint: FALL AT WORK Nursing Triage Note: FALL AT WORK Source: patient History of Present Illness Time seen by provider: 04:28 Initial Comments PT ARRIVES VIA POV--DROVE HERSELF HERE FROM WORK STATES SHE WAS AT WORK ( [employer]), AND HAD JUST MOPPED THE FLOOR , AND WAS GOING ON BREAK AND SLIPPED AND FELL FORWARD, LANDING ON HER LEFT KNEE AND HITTING HER HEAD ON THE FLOOR OCCURRED AROUND 0300 C/O PAIN TO LEFT KNEE C/O PAIN TO HEAD C/O POSTERIOR NECK PAIN NO LOSS OF CONSCIOUSNESS HAD MILD NAUSEA, NO VOMITING. IS GONE NOW. NO VISION CHANGES NO PARESTHESIAS OR MOTOR DEFICITS NO DIZZINESS PT HAS CHRONIC BACK PAIN --NO C/O BACK PAIN AT THIS TIME--TOOK HYDROCODONE AND FLEXERIL YESTERDAY AM AROUND 0500. HAS NOT TAKEN ANYTHING FOR PAIN SINCE THEN. Location Injury Occurred: WORK PCP: DR. AKERS Allergies and Home Medications Allergies Coded Allergies: Neuromuscular Blockers, Steroidal (Unverified Allergy, Unknown, 07/02/16) Home Medications Cyclobenzaprine HCl 10 Mg Tablet, 10 MG PO Q8H PRN for SPASMS, #10 Ref 0 Prescribed by: BRENNA FERNANDEZ on 04/14/17 1302 Glimepiride 4 Mg Tablet, 2 MG PO DAILY, (Reported) take 1/2 of 4mg tab Hydrocodone/Acetaminophen 1 Each Tablet, 1 EACH PO BID PRN for PAIN, #30 Prescribed by: TODD RUFFIN on 11/14/16 1157 Constitutional: no symptoms reported Eyes: No Symptoms Reported Ears, Nose, Mouth, Throat: no symptoms reported Respiratory: no symptoms reported Cardiovascular: no symptoms reported Gastrointestinal: see HPI, No abdominal pain, nausea, No vomiting Genitourinary: no symptoms reported : No (MENOPAUSAL) Musculoskeletal: see HPI, neck pain, other (LEFT KNEE PAIN ) Skin: no symptoms reported Psychiatric/Neurological: See HPI, Headache, Denies Numbness, Denies Paresthesia, Denies Tingling, Denies Weakness Past Fmoqgef-Ddjdtv-Pmbngh Hx Patient Social History Alcohol Use: Denies Use Recreational Drug Use: No Smoking Status: Never a Smoker 2nd Hand Smoke Exposure: Yes Recent Foreign Travel: No Contact w/Someone Who Travel: No Recent Infectious Disease Expo: No Recent Hopitalizations: No Immunizations Up To Date Tetanus Booster (TDap): Unknown Date of Pneumonia Vaccine: Mar 26, 2016 Date of Influenza Vaccine: Mar 26, 2016 Seasonal Allergies Seasonal Allergies: Yes Surgeries History of Surgeries: Yes ( X 2) Surgeries: Section, Gallbladder Respiratory History of Respiratory Disorde: Yes Respiratory Disorders: Asthma Cardiovascular History of Cardiac Disorders: Yes Cardiac Disorders: Heart Murmur Neurological History of Neurological Disord: No Reproductive System Hx Reproductive Disorders: No Sexually Transmitted Disease: No HIV/AIDS: No CUT OFF [employer] History: Menopausal Genitourinary History of Genitourinary Disor: No Gastrointestinal History of Gastrointestinal Di: Yes Gastrointestinal Disorders: Gastroesophageal Reflux Musculoskeletal History of Musculoskeletal Dis: Yes Musculoskeletal Disorders: Arthritis, Chronic Back Pain Endocrine History of Endocrine Disorders: Yes Endocrine Disorders: Hypothyroidsim, Diabetes, Non-Insulin dep HEENT History of HEENT Disorders: No Loss of Vision: Bilateral Hearing Impairment: Denies Cancer History of Cancer: No Psychosocial History of Psychiatric Problem: Yes Behavioral Health Disorders: Anxiety, Depression Integumentary History of Skin or Integumenta: No Blood Transfusions History of Blood Disorders: No Adverse Reaction to a Blood Tr: No (N/A) Family Medical History Significant Family History: No Pertinent Family Hx Physical Exam Vital Signs Vital Sign - Last 12Hours 05/20/17 04:25 Temp 96.3 Pulse 77 Resp 16 B/P (MAP) 169/86 (113) Pulse Ox 99 O2 Delivery Room Air Capillary Refill : Less Than 3 Seconds General Appearance: WD/WN, no apparent distress HEENT: PERRL/EOMI, normal ENT inspection, TMs normal, pharynx normal, other ( TENDERNESS AND SLIGHT SWELLING TO FRONTAL SCALP--SLIGHTLY TO RIGHT OF MIDLINE) Neck: tender lateral, tender midline Cardiovascular: normal peripheral pulses, regular rate, rhythm, no edema, no JVD Respiratory: normal breath sounds, no respiratory distress, no accessory muscle use Peripheral Pulses: 2+ Dorsalis Pedis (R), 2+ Left Dors-Pedis (L), 2+ Radial Pulses (R), 2+ Radial Pulses (L) Gastrointestinal: normal bowel sounds, non tender, soft, no organomegaly, no pulsatile mass Back: normal inspection, no CVA tenderness, no vertebral tenderness Extremities: no pedal edema, no calf tenderness, normal capillary refill, other (LEFT KNEE TENDERNESS) Neurologic/Psychiatric: 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, no motor/sensory deficits, alert, normal mood/affect, oriented x 3 Skin: normal color, warm/dry, other (NO EXTERNAL EVIDENCE OF TRAUMA ANYWHERE) Progress/Results/Core Measures Results/Orders My Orders Orders - TOMER ROBLES DO Ct Head/Cervical Spine Wo (05/20/17 04:35) Knee, Left, 3 Views (05/20/17 04:35) Cervical Collar (05/20/17 04:35) Vital Signs/I&O Vital Sign - Last 12Hours 05/20/17 04:25 Temp 96.3 Pulse 77 Resp 16 B/P (MAP) 169/86 (113) Pulse Ox 99 O2 Delivery Room Air Blood Pressure Mean: 113 Progress Note : Progress Note PT IMMEDIATELY PLACED IN C-COLLAR ON ARRIVAL AND LAID FLAT COLLAR REMOVED AFTER OBTAINING CT RESULTS PT AMBULATES INTO ER WITHOUT DIFFICULTY Diagnostic Imaging Comments XRAYS LEFT KNEE--NO ACUTE PROCESS, PENDING RADIOLOGIST REVIEW CT HEAD/CERVICAL SPINE--NO ACUTE PROCESS, PER [facility] VIA FAX @ [id number] Reviewed: Reviewed by Me Departure Impression Impression: Primary Impression: Status post fall Additional Impressions: CERVICAL SPINE STRAIN Head contusion Minor head injury without loss of consciousness Contusion of left knee, initial encounter Disposition: 01 HOME, SELF-CARE Condition: Stable Departure-Patient Inst. Referrals: MARYCRUZ AKERS DO (PCP/Family) Primary Care Physician Patient Instructions: Cervical Muscle Strain (DC), Knee Pain (DC), Minor Head Injury (DC), Preventing Falls Add. Discharge Instructions: ICE TO SORE AREAS AT 20 MINUTE INTERVALS FOR FIRST 24 HOURS, THEN YOU MAY ALTERNATE ICE AND HEAT TO SORE AREAS TAKE YOUR HOME FLEXERIL AND HYDROCODONE NEEDED FOR PAIN YOU MAY TAKE IBUPROFEN OR ALEVE NEEDED FOR PAIN FOLLOW UP WITH WORKMAN'S COMP/OCCUPATIONAL HEALTH IN 1-2 DAYS FOR FURTHER CARE All discharge instructions reviewed with patient and/or family. Voiced understanding. TOMER ROBLES DO May 20, 2017 04:37
--- NOTE | 2017-05-20 06:05 | Diagnostic Imaging Report ---
INDICATION: Fall with left knee pain. AP, oblique and lateral views of the left knee are obtained. FINDINGS: There is prominence of the anterior tibial tubercle which appears chronic. No acute fracture or dislocation is identified. No abnormal lytic or sclerotic focus is seen, and there is no radiopaque foreign body. IMPRESSION: No acute abnormality. Dictated by: Dictated on workstation # [id number]
[2017-05-20 06:14] VITALS: BP 169/86
--- NOTE | 2017-05-20 06:36 | Diagnostic Imaging Report ---
PROCEDURE: CT head and CT cervical spine without contrast. TECHNIQUE: Multiple contiguous axial images were obtained through the brain and cervical spine without the use of intravenous contrast. Sagittal and coronal reformations through the cervical spine were then performed. INDICATION: Fall with head and neck injury CT HEAD: Multiple contiguous axial CT images of the head were obtained. FINDINGS: Ventricles and sulci are within normal limits for size. There is no intracranial hemorrhage identified. There is no abnormal mass effect or shift of midline structures. IMPRESSION: Unremarkable CT of the head. EXAMINATION: Multiple contiguous axial CT images of the cervical spine were obtained with sagittal and coronal reformatted images produced. FINDINGS: The cervical curvature and alignment are within normal limits. The vertebral body heights and disc spaces are maintained without evidence of fracture or subluxation. There is no paraspinous hematoma. IMPRESSION: No CT evidence of acute cervical spinal abnormality. Dictated by: Dictated on workstation # [id number]
== END 2017-05-20 06:14 | disposition home or self-care (01) ==
LOC: EDUNIT# 04:10 → ER 04:14
DX: S09.90XA Unspecified injury of head, initial encounter (principal); S00.93XA Contusion of unspecified part of head, initial encounter; S16.1XXA Strain of muscle, fascia and tendon at neck level, initial encounter; S80.02XA Contusion of left knee, initial encounter; F41.9 Anxiety disorder, unspecified; F32.9 Major depressive disorder, single episode, unspecified; E03.9 Hypothyroidism, unspecified; E11.9 Type 2 diabetes mellitus without complications; J45.909 Unspecified asthma, uncomplicated; Z87.59 Personal history of other complications of pregnancy, childbirth and the puerperium; Z77.22 Contact with and (suspected) exposure to environmental tobacco smoke (acute) (chronic); Z79.84 Long term (current) use of oral hypoglycemic drugs; W01.198A Fall on same level from slipping, tripping and stumbling with subsequent striking against other object, initial encounter; Y93.E5 Activity, floor mopping and cleaning
CPT/HCPCS: 70450; 72125; 73562; 99282

== ENCOUNTER 2017-06-15 11:17 | Emergency (ER) | payer OTHER ==
[~2017-06-15] VITALS: Ht 157.5 cm; Wt 86.6 kg
[~2017-06-15 11:17] MED LIST changes: +ACHD5005 PO; -HYDR-3812 PO; +NAPR-1071 PO; -NAPR500T PO
[2017-06-15] MEDS ORDERED: LISI10TA2 PO (11:36)
[2017-06-15] MEDS ORDERED: NS IV 1000 ML 1,000 ML IV ONE (11:50)
[2017-06-15] MEDS ORDERED: fentaNYL INJECTION 100 MCG/2 ML AMP IVP STA (11:50)
--- NOTE | 2017-06-15 11:58 | ED Syncope ---
General Chief Complaint: Dizziness/Syncope Stated Complaint: SYNCOPE Nursing Triage Note: PT TO ROOM 2 PER W/C PT STATES NEARLY PASSED OUT THIS AM, STATES WAS TALKING ON PHONE, HAS HAD L EAR ACHE FOR A FEW DAYS, STATES HAS BACK, NECK AND L ARM PAIN CHRONIC FROM ARTHRITIS, TOOK 1/2 HYDROCODONE LAST PM FOR PAIN, STATES WORSE PAIN WHEN GETS COLD OUTSIDE. PT HAD CALLED EMS AND REFUSED [place] Source of Information: Patient Exam Limitations: No Limitations History of Present Illness Time Seen by Provider: 11:41 Initial Comments 52 yo female patient presents to the ED with c/o near syncopal episode while standing at the sink washing dishes and arguing to her exhusband on the phone. States she began feeling very dizzy with vertigo and was able to lower herself to the ground. Denies hitting her head or loss of consciousness. Patient does complain of left ear ache for approximately one week and chronic back, neck, left arm pain from arthritis. States she took 1/2 of a tablet of hydrocodone without improvement in symptoms. Does complain of nausea and continued vertigo. Patient states she is "prediabetic" and has a history of a "light heart attack" 15 years ago. Has a h/o inner ear infections with vertigo, but states this is a little worse than previous symptoms. Does report left arm pain , neck pain and dizziness with emotional stress. Location Injury Occurred: home Timing/Prior Episodes: Remote History Symptoms Prior to Episode: Lightheadedness, Nausea, Other (vision started to "go black") Precipitating Factors: Other (standing at the sink arguing with her ex- on the phone.) Loss of Consciousness: No Loss of Consciousness (aunt reports patient was "buggy eyed".) Allergies and Home Medications Allergies Coded Allergies: Neuromuscular Blockers, Steroidal (Unverified Allergy, Unknown, 07/02/16) Home Medications Glimepiride 4 Mg Tablet, 2 MG PO DAILY, (Reported) take 1/2 of 4mg tab Hydrocodone Bit/Acetaminophen 1 Each Tablet, 1 EACH PO BID PRN for PAIN, #30 Prescribed by: TODD RUFFIN on 11/14/16 1157 Lisinopril 10 Mg Tablet, 10 MG PO DAILY, (Reported) Meclizine HCl 25 Mg Tablet, 25 MG PO Q4H PRN for VERTIGO, #20 Ref 0 Prescribed by: BRENNA FERNANDEZ on 06/15/17 1503 Constitutional: No chills, No diaphoresis, dizziness, No fever, No malaise, No weakness EENTM: ear pain (left ear pain), No ear discharge, No blurred vision, No double vision, No mouth pain, No nose congestion, No nose pain, No throat pain Respiratory: No cough, No dyspnea on exertion, No orthopnea, No short of breath Cardiovascular: No chest pain, No edema, No palpitations, syncope (near syncopal episode), No vascular heart diseas Gastrointestinal: No abdominal pain, No constipation, No diarrhea, No hematemesis, No heartburn, nausea, No vomiting Genitourinary: No decreased output, No dysuria, No frequency, No pain Musculoskeletal: see HPI Skin: no symptoms reported Psychiatric/Neurological: See HPI, Headache, Denies Numbness, Denies Paresthesia, Denies Seizure, Denies Tingling, Denies Weakness All Other Systems Reviewed Negative Unless Noted: Yes (Negative excepted noted.) Past Yfgkzqt-Eymxub-[place] Hx Patient Social History Alcohol Use: Rarely Uses Recreational Drug Use: No Smoking Status: Never a Smoker 2nd Hand Smoke Exposure: Yes Recent Foreign Travel: No Contact w/Someone Who Travel: No Recent Infectious Disease Expo: No Recent Hopitalizations: No Physical Abuse: No Sexual Abuse: No Immunizations Up To Date Tetanus Booster (TDap): Unknown Date of Pneumonia Vaccine: Mar 26, 2016 Date of Influenza Vaccine: Mar 26, 2016 Seasonal Allergies Seasonal Allergies: Yes Surgeries History of Surgeries: Yes ( X 2) Surgeries: Section, Gallbladder Respiratory History of Respiratory Disorde: Yes Respiratory Disorders: Asthma Cardiovascular History of Cardiac Disorders: Yes ("light heart attack" 15 years ago.) Cardiac Disorders: Heart Murmur Neurological History of Neurological Disord: Yes Neurological Disorders: Headaches /Migraines, Vertigo (vertigo with inner ear infections.) Reproductive System Hx Reproductive Disorders: No Sexually Transmitted Disease: No HIV/AIDS: No 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 Genitourinary History of Genitourinary Disor: No Gastrointestinal History of Gastrointestinal Di: Yes Gastrointestinal Disorders: Gastroesophageal Reflux Musculoskeletal History of Musculoskeletal Dis: Yes (chronic neck pain and chronic left arm pain.) Musculoskeletal Disorders: Arthritis, Chronic Back Pain Endocrine History of Endocrine Disorders: Yes Endocrine Disorders: Hypothyroidsim, Diabetes, Non-Insulin dep HEENT History of HEENT Disorders: No Loss of Vision: Bilateral Hearing Impairment: Denies Cancer History of Cancer: No Psychosocial History of Psychiatric Problem: Yes Behavioral Health Disorders: Anxiety, Depression Suicide Risk Score: 0 Integumentary History of Skin or Integumenta: No Blood Transfusions History of Blood Disorders: No Adverse Reaction to a Blood Tr: No (N/A) Reviewed Nursing Assessment Reviewed/Agree w Nursing PMH: Yes Family Medical History Significant Family History: No Pertinent Family Hx Physical Exam Vital Signs Vital Sign - Last 12Hours 06/15/17 11:20 Temp 97.9 Pulse 61 Resp 18 B/P (MAP) 155/88 (110) Pulse Ox 99 Capillary Refill : Less Than 3 Seconds General Appearance: No Apparent Distress, WD/WN HEENT: PERRL/EOMI, TMs Normal, Normal ENT Inspection, Pharynx Normal Neck: Full Range of Motion, Normal Inspection, Supple, No Carotid Bruit, Tender Lateral ((patient reports similar to her usual chronic neck pain.), Tender Midline (mild ttp over C5/6 (patient reports this feels similar to her normal chronic pain)) Cardiovascular: Regular Rate, Rhythm, No Edema, No Murmur, Normal Peripheral Pulses Respiratory: Lungs Clear, Normal Breath Sounds, No Accessory Muscle Use, No Respiratory Distress Gastrointestinal: Normal Bowel Sounds, No Organomegaly, No Pulsatile Mass, Non Tender, Soft, No Distended Back: Normal Inspection, No Vertebral Tenderness, No Decreased Range of Motion Extremities: Normal Capillary Refill, Normal Inspection, Normal Range of Motion , Non Tender, No Pedal Edema, Pelvis Stable Neurologic/Psychiatric: Alert, Oriented x3, No Motor/Sensory Deficits, Normal Mood/Affect, shore hand dredge or barge II-XII Norm as Tested Cranial Nerves: Normal Hearing, Normal Speech, PERRL Coordination/Gait: Normal Finger to Nose, Normal Gait, Negative Romberg's Sign , Other Motor/Sensory: No Motor Deficit, No Sensory Deficit, No Pronator Drift Skin: Normal Color, Warm/Dry Progress/Results/Core Measures Results/Orders Lab Results Laboratory Tests Test 06/15/17 12:15 06/15/17 12:20 06/15/17 13:54 Range/Units White Blood Count 5.1 4.3-11.0 10^3/uL Red Blood Count 5.13 4.35-5.85 10^6/uL Hemoglobin 14.8 11.5-16.0 G/DL Hematocrit 43 35-52 % Mean Corpuscular Volume 84 80-99 FL Mean Corpuscular Hemoglobin 29 25-34 PG Mean Corpuscular Hemoglobin Concent 35 32-36 G/DL Red Cell Distribution Width 12.7 10.0-14.5 % Platelet Count 208 130-400 10^3/uL Mean Platelet Volume 10.6 H 7.4-10.4 FL Neutrophils (%) (Auto) 56 42-75 % Lymphocytes (%) (Auto) 33 12-44 % Monocytes (%) (Auto) 9 0-12 % Eosinophils (%) (Auto) 2 0-10 % Basophils (%) (Auto) 0 0-10 % Neutrophils # (Auto) 2.9 1.8-7.8 X 10^3 Lymphocytes # (Auto) 1.7 1.0-4.0 X 10^3 Monocytes # (Auto) 0.5 0.0-1.0 X 10^3 Eosinophils # (Auto) 0.1 0.0-0.3 10^3/uL Basophils # (Auto) 0.0 0.0-0.1 10^3/uL D-Dimer < 0.27 0.00-0.49 UG/ML Sodium Level 137 135-145 MMOL/L Potassium Level 3.9 3.6-5.0 MMOL/L Chloride Level 104 98-107 MMOL/L Carbon Dioxide Level 22 21-32 MMOL/L Anion Gap 11 5-14 MMOL/L Blood Urea Nitrogen 10 7-18 MG/DL Creatinine 0.75 0.60-1.30 MG/DL Estimat Glomerular Filtration Rate > 60 BUN/Creatinine Ratio 13 Glucose Level 239 H 70-105 MG/DL Calcium Level 9.3 8.5-10.1 MG/DL Magnesium Level 1.8 1.8-2.4 MG/DL Total Bilirubin 0.5 0.1-1.0 MG/DL Aspartate Amino Transf (AST/SGOT) 15 5-34 U/L Alanine Aminotransferase (ALT/SGPT) 19 0-55 U/L Alkaline Phosphatase 79 40-136 U/L Total Creatine Kinase 105 29-168 U/L Creatine Kinase MB 2.1 <6.6 NG/ML Myoglobin 38.0 10.0-92.0 NG/ML Troponin I < 0.30 <0.30 NG/ML Total Protein 7.2 6.4-8.2 GM/DL Albumin 4.0 3.2-4.5 GM/DL Free Thyroxine 0.89 0.70-1.48 NG/DL TSH Barber Testing 6.12 H 0.35-4.94 UIU/ML Serum Alcohol < 10 <10 MG/DL Glucometer 211 H 70-110 MG/DL Urine Color YELLOW Urine Clarity CLEAR Urine pH 7 5-9 Urine Specific [place] 1.010 L 1.016-1.022 Urine Protein 1+ H NEGATIVE Urine Glucose (UA) NEGATIVE NEGATIVE Urine Ketones NEGATIVE NEGATIVE Urine Nitrite NEGATIVE NEGATIVE Urine Bilirubin NEGATIVE NEGATIVE Urine Urobilinogen NORMAL NORMAL MG/DL Urine Leukocyte Esterase NEGATIVE NEGATIVE Urine RBC (Auto) NEGATIVE NEGATIVE Urine RBC NONE /HPF Urine WBC NONE /HPF Urine Squamous Epithelial Cells 5-10 /HPF Urine Crystals NONE /LPF Urine Bacteria TRACE /HPF Urine Casts NONE /LPF Urine Mucus NEGATIVE /LPF Urine Culture Indicated NO Urine Opiates Screen NEGATIVE NEGATIVE Urine Oxycodone Screen NEGATIVE NEGATIVE Urine Methadone Screen NEGATIVE NEGATIVE Urine Propoxyphene Screen NEGATIVE NEGATIVE Urine Barbiturates Screen NEGATIVE NEGATIVE Ur Tricyclic Antidepressants Screen NEGATIVE NEGATIVE Urine Phencyclidine Screen NEGATIVE NEGATIVE Urine Amphetamines Screen NEGATIVE NEGATIVE Urine Methamphetamines Screen NEGATIVE NEGATIVE Urine Benzodiazepines Screen NEGATIVE NEGATIVE Urine Cocaine Screen NEGATIVE NEGATIVE Urine Cannabinoids Screen NEGATIVE NEGATIVE My Orders Orders - BRENNA FERNANDEZ Alcohol (06/15/17 11:50) Cbc With Automated Diff (06/15/17 11:50) Comprehensive Metabolic Panel (06/15/17 11:50) Creatine Kinase (06/15/17 11:50) Creatine Kinase Mb (06/15/17 11:50) Fibrin Degradation Products (06/15/17 11:50) Drug Screen Stat (Urine) (06/15/17 11:50) Magnesium (06/15/17 11:50) Thyroid Analyzer (06/15/17 11:50) Troponin I (06/15/17 11:50) Ua Culture If Indicated (06/15/17 11:50) Myoglobin Serum (06/15/17 11:50) Ct Head Wo (06/15/17 11:50) Accucheck Stat ONCE (06/15/17 11:50) Saline Lock/Iv-Start (06/15/17 11:50) Ekg Tracing (06/15/17 11:50) Monitor-Rhythm Ecg Trace Only (06/15/17 11:50) Chest 1 View, Ap/Pa Only (06/15/17 11:50) Ondansetron Injection (Zofran Injectio (06/15/17 12:00) Fentanyl Injection (Sublimaze Injection (06/15/17 11:50) Ns Iv 1000 Ml (Sodium Chloride 0.9%) (06/15/17 11:50) Meclizine Tablet (Antivert Tablet) (06/15/17 12:00) Free T4 (Free Thyroxine) (06/15/17 12:15) Ct Angio Head/Neck (06/15/17 13:55) Iohexol Injection (Omnipaque 350 Mg/Ml 1 (06/15/17 14:00) Ns (Ivpb) (Sodium Chloride 0.9% Ivpb Bag (06/15/17 14:00) Pharmacy Communication (Pharmacy Communi (06/15/17 13:59) Meclizine Tablet (Antivert Tablet) (06/15/17 15:45) Acetaminophen Tablet (Tylenol Tablet) (06/15/17 15:45) Medications Given in ED Current Medications Medications Dose Ordered Sig/Maryellen Route Start Time Stop Time Status Last Admin Dose Admin Acetaminophen 1,000 mg ONCE ONCE PO 06/15/17 15:45 06/15/17 15:46 DC 06/15/17 15:57 1,000 MG Iohexol 100 ml ONCE ONCE IV 06/15/17 14:00 06/15/17 14:01 DC 06/15/17 14:17 85 ML Meclizine HCl 25 mg ONCE ONCE PO 06/15/17 12:00 06/15/17 12:01 DC 06/15/17 12:20 25 MG Meclizine HCl 25 mg ONCE ONCE PO 06/15/17 15:45 06/15/17 15:46 DC 06/15/17 15:57 25 MG Ondansetron HCl 4 mg ONCE ONCE IVP 06/15/17 12:00 06/15/17 12:01 DC 06/15/17 12:20 4 MG Sodium Chloride 100 ml ONCE ONCE IV 06/15/17 14:00 06/15/17 14:01 DC 06/15/17 14:17 80 ML Vital Signs/I&O Vital Sign - Last 12Hours 06/15/17 06/15/17 06/15/17 11:20 15:57 16:02 Temp 97.9 97.9 97.9 Pulse 61 61 Resp 18 18 B/P (MAP) 155/88 (110) Pulse Ox 99 99 Blood Pressure Mean: 110 ECG Initial ECG Impression Date: Jun 15, 2017 Diagnostic Imaging Diagonstic Imaging: CT Plain Films/CT/US/NM/MRI: head Comments FINDINGS: The ventricles and cerebral spinal fluid spaces are of normal size and configuration for the patient's age. There is no mass effect or midline shift. There is no acute intracranial hemorrhage. There is no abnormal extra- axial fluid collection. The visualized portions of the paranasal sinuses, mastoid air cells and middle ears are well aerated. IMPRESSION: 1. No identified acute intracranial abnormality. Dictated by: Dictated on workstation # [id number] Reviewed: Reviewed by Me (radiology report reviewed by me) Diagonstic Imaging: Xray Plain Films/CT/US/NM/MRI: chest Comments FINDINGS: Stable overall appearance of the cardiomediastinal silhouette. There is no identified pneumothorax. There is no large pleural effusion. Lung volumes are somewhat low with associated central bronchovascular crowding. There is no identified interval focal airspace consolidation. There are technical limitations of the exam relating to patient body habitus. IMPRESSION: 1. Low lung volumes without identified acute cardiopulmonary abnormality. Dictated by: Dictated on workstation # [id number] Reviewed: Reviewed by Me (radiology report reviewed by me) Diagonstic Imaging: CT Plain Films/CT/US/NM/MRI: head (CT angio head) Comments Comparison: CT head June 15, 2017. CT head and cervical spine May 20, 2017. Findings: The ventricles and CSF spaces are normal in size and configuration for patient age. There is no identified abnormal extra-axial fluid collection. There is no pronounced mass effect or midline shift. There is no abnormal intracranial enhancement. There is a three-vessel aortic arch. The left common carotid artery is patent. The left internal carotid artery is patent. The left anterior cerebral artery is patent. The left middle cerebral artery is patent. The right anterior cerebral artery is patent. The right middle cerebral artery is patent. The right internal carotid artery is patent and without high-grade stenosis. There is calcification at the right carotid bifurcation. The right common carotid artery is patent. The left vertebral artery does appear most likely conventional in origin. The left vertebral artery is not identified as contrast opacified and may be occluded. The right vertebral artery is most likely conventional in origin. There is artifact at the level of the lower aspect of the right vertebral artery. The lower aspect of the right vertebral artery is not well visualized or evaluated. The more distal aspect of the right vertebral artery is patent. The right vertebral artery is dominant. The basilar artery is patent. There are patent right and left posterior communicating arteries. The right and left posterior cerebral arteries are patent. The right and left posterior inferior cerebellar arteries are patent. The visualized portions of the lung apices are clear. Impression: 1. Lack of identified contrast opacified left vertebral artery which may be occluded. This is of uncertain chronicity. The right vertebral artery is dominant. There are patent bilateral posterior communicating arteries. The right and left posterior cerebral arteries are patent. 2. Patent anterior and middle cerebral arteries bilaterally. The bilateral internal carotid artery and common carotid arteries. No high-grade carotid stenosis. 3. No identified aneurysm. Dictated by: Dictated on workstation # [id number] Reviewed: Reviewed by Me (radiology report reviewed by me) Departure Communication (Admissions) Progress Notes Patient seen and evaluated. Initial labs, EKG, chest x-ray, and CT head obtained. Patient was given 50 g of fentanyl, 4 mg Zofran, and liter normal saline, and 25 mg of Antivert with no improvement in symptoms. CT angiogram head/neck was obtained due to continued for to go. Findings were discussed with Miguel Tuttle MD. Recommendations by Dr. Tuttle were for discharge to home with follow-up on Saturday with Dr. Dr. Akers. Patient reports feeling better with the second dose of antivert 25 mg and the tylenol 1 g. patient is alert and oriented 3, no acute distress. Cranial nerves II through XII intact. No motor or sensory deficits noted. Normal gait. Negative Romberg test. Patient ambulated from the emergency department without difficulty. All return precautions were discussed with the patient as described in the discharge instructions of this report. Patient is to return immediately to the emergency department for worsened symptoms or any other concerns. Impression Impression: Primary Impression: Vertigo Disposition: HOME, SELF-CARE Condition: Improved Departure-Patient Inst. Decision time for Depature: 15:02 Referrals: MARYCRUZ AKERS DO (PCP/Family) Primary Care Physician Patient Instructions: Vertigo (a Type of Dizziness) (DC) Add. Discharge Instructions: All discharge instructions reviewed with patient and/or family. Voiced understanding. Medications as instructed. Tylenol extra strength over-the- counter as directed for headache or pain. Ibuprofen 800 mg by mouth every 8 hours as needed for headache or pain. Claritin and afrin nasal spray over the counter for inner ear fluid. Avoid stress and situations that may cause agitation. Heating pads or packs as needed for muscle pain. Avoid standing quickly. Follow-up with Dr. Akers Saturday for recheck. Call first thing Saturday for appointment time. Return immediately to the emergency department for worsened symptoms, headache, changes in behavior, numbness, weakness, seizure, chest pain, shortness of air, vomiting, vertigo, or any other concerns. Scripts Meclizine HCl (Meclizine HCl) 25 Mg Tablet 25 MG PO Q4H Y for VERTIGO, #20 TAB 0 Refills Prov: BRENNA FERNANDEZ 06/15/17 BRENNA FERNANDEZ Jun 15, 2017 11:58
[2017-06-15] MEDS ORDERED: MECLIZINE 25 MG (ANTIVERT) TAB PO ONE ×2 (12:00→15:45)
[2017-06-15] MEDS ORDERED: ONDANSETRON 4 MG/2 ML (SDV) Z0FRAN IVP ONE (12:00)
[2017-06-15 12:26] LABS: BASOPHILS % (AUTO) 0 % (0-10); EOSINOPHILS # (AUTO) 0.1 10^3/uL (0.0-0.3); EOSINOPHILS % (AUTO) 2 % (0-10); HEMATOCRIT 43 % (35-52); HEMOGLOBIN 14.8 G/DL (11.5-16.0); LYMPHOCYTES # (AUTO) 1.7 X 10^3 (1.0-4.0); LYMPHOCYTES % (AUTO) 33 % (12-44); MEAN CORPUSCULAR HEMOGLOBIN 29 PG (25-34); MEAN CORPUSCULAR HGB CONC 35 G/DL (32-36); MEAN CORPUSCULAR VOLUME 84 FL (80-99); MEAN PLATELET VOLUME 10.6 FL (7.4-10.4); MONOCYTES # (AUTO) 0.5 X 10^3 (0.0-1.0); MONOCYTES % (AUTO) 9 % (0-12); NEUTROPHILS # (AUTO) 2.9 X 10^3 (1.8-7.8); NEUTROPHILS % (AUTO) 56 % (42-75); PLATELET COUNT 208 10^3/uL (130-400); RED BLOOD COUNT 5.13 10^6/uL (4.35-5.85); RED CELL DISTRIBUTION WIDTH 12.7 % (10.0-14.5); WHITE BLOOD COUNT 5.1 10^3/uL (4.3-11.0)
--- NOTE | 2017-06-15 12:37 | Diagnostic Imaging Report ---
EXAMINATION: Chest radiograph, portable AP view. DATE: 06/15/2017 at 1221 hours. INDICATION: 52-year-old female, weakness and syncope. COMPARISON: Chest radiograph 08/06/2009. FINDINGS: Stable overall appearance of the cardiomediastinal silhouette. There is no identified pneumothorax. There is no large pleural effusion. Lung volumes are somewhat low with associated central bronchovascular crowding. There is no identified interval focal airspace consolidation. There are technical limitations of the exam relating to patient body habitus. IMPRESSION: 1. Low lung volumes without identified acute cardiopulmonary abnormality. Dictated by: Dictated on workstation # [id number]
[2017-06-15 12:48] LABS: ALANINE AMINOTRANSFERASE 19 U/L (0-55); ALKALINE PHOSPHATASE 79 U/L (40-136); BILIRUBIN,TOTAL 0.5 MG/DL (0.1-1.0); BUN/CREATININE RATIO 13; CALCIUM 9.3 MG/DL (8.5-10.1); CARBON DIOXIDE 22 MMOL/L (21-32); CHLORIDE 104 MMOL/L (98-107); CREATINE KINASE 105 U/L (29-168); CREATININE SERUM 0.75 MG/DL (0.60-1.30); GFR ESTIMATED > 60; GLUCOSE 239 MG/DL (70-105); MAGNESIUM 1.8 MG/DL (1.8-2.4); POTASSIUM 3.9 MMOL/L (3.6-5.0); SODIUM 137 MMOL/L (135-145); TOTAL PROTEIN 7.2 GM/DL (6.4-8.2)
--- NOTE | 2017-06-15 12:55 | Diagnostic Imaging Report ---
PROCEDURE: CT head without contrast. TECHNIQUE: Multiple contiguous axial images were obtained through the brain without the use of intravenous contrast. DATE: June 15, 2017. COMPARISON: CT head and cervical spine May 20, 2017. INDICATION: 52-year-old female, syncope, dizziness. FINDINGS: The ventricles and cerebral spinal fluid spaces are of normal size and configuration for the patient's age. There is no mass effect or midline shift. There is no acute intracranial hemorrhage. There is no abnormal extra-axial fluid collection. The visualized portions of the paranasal sinuses, mastoid air cells and middle ears are well aerated. IMPRESSION: 1. No identified acute intracranial abnormality. Dictated by: Dictated on workstation # [id number]
[2017-06-15 13:08] LABS: CREATINE KINASE MB 2.1 NG/ML (<6.6); TSH (THYROID ANALYZER) 6.12 UIU/ML (0.35-4.94)
[2017-06-15 13:40] LABS: FREE T4 (FREE THYROXINE) 0.89 NG/DL (0.70-1.48)
[2017-06-15] MEDS ORDERED: IOHEXOL 350 MG/ML 100 ML (OMNIPAQUE 350) VIAL IV ONE (14:00)
[2017-06-15] MEDS ORDERED: NS 100 ML (IVPB) BAG IV ONE (14:00)
[2017-06-15 14:07] LABS: BILIRUBIN,URINE NEGATIVE (NEGATIVE); CLARITY,URINE CLEAR; COLOR,URINE YELLOW; GLUCOSE, URINE (UA) NEGATIVE (NEGATIVE); KETONES,URINE NEGATIVE (NEGATIVE); LEUKOCYTE ESTERASE ,URINE NEGATIVE (NEGATIVE); NITRITE,URINE NEGATIVE (NEGATIVE); PH,URINE 7 (5-9); PROTEIN,URINE 1+ (NEGATIVE); UROBILINOGEN,URINE NORMAL (NORMAL)
[2017-06-15 14:13] LABS: BACTERIA,URINE TRACE /HPF
[2017-06-15 14:17] LABS: AMPHETAMINE SCREEN, URINE NEGATIVE (NEGATIVE); BARBITURATE SCREEN URINE NEGATIVE (NEGATIVE); BENZODIAZEPINES SCREEN URINE NEGATIVE (NEGATIVE); CANNABINOID SCREEN, URINE NEGATIVE (NEGATIVE); COCAINE SCREEN URINE NEGATIVE (NEGATIVE); METHADONE STAT NEGATIVE (NEGATIVE); METHAMPHETAMINE SCREEN URINE S NEGATIVE (NEGATIVE); OPIATE SCREEN URINE NEGATIVE (NEGATIVE); OXYCODONE STAT NEGATIVE (NEGATIVE); PROPOXYPHENE STAT NEGATIVE (NEGATIVE); TRICYCLIC ANTIDEPRESSANTS SCRE NEGATIVE (NEGATIVE)
--- NOTE | 2017-06-15 14:53 | Diagnostic Imaging Report ---
PROCEDURE: CT angiography of the head and CT angiography of the neck with and without contrast. TECHNIQUE: Contiguous noncontrast images were obtained from the skull base through the vertex. After intravenous contrast administration, helical CT angiography of the neck was performed. Source data was reformatted into multiple MIP projections. Delayed post contrast acquisition was also obtained. Date: June 15, 2017. Indication: 52-year-old female, dizziness, syncope. Comparison: CT head June 15, 2017. CT head and cervical spine May 20, 2017. Findings: The ventricles and CSF spaces are normal in size and configuration for patient age. There is no identified abnormal extra-axial fluid collection. There is no pronounced mass effect or midline shift. There is no abnormal intracranial enhancement. There is a three-vessel aortic arch. The left common carotid artery is patent. The left internal carotid artery is patent. The left anterior cerebral artery is patent. The left middle cerebral artery is patent. The right anterior cerebral artery is patent. The right middle cerebral artery is patent. The right internal carotid artery is patent and without high-grade stenosis. There is calcification at the right carotid bifurcation. The right common carotid artery is patent. The left vertebral artery does appear most likely conventional in origin. The left vertebral artery is not identified as contrast opacified and may be occluded. The right vertebral artery is most likely conventional in origin. There is artifact at the level of the lower aspect of the right vertebral artery. The lower aspect of the right vertebral artery is not well visualized or evaluated. The more distal aspect of the right vertebral artery is patent. The right vertebral artery is dominant. The basilar artery is patent. There are patent right and left posterior communicating arteries. The right and left posterior cerebral arteries are patent. The right and left posterior inferior cerebellar arteries are patent. The visualized portions of the lung apices are clear. Impression: 1. Lack of identified contrast opacified left vertebral artery which may be occluded. This is of uncertain chronicity. The right vertebral artery is dominant. There are patent bilateral posterior communicating arteries. The right and left posterior cerebral arteries are patent. 2. Patent anterior and middle cerebral arteries bilaterally. The bilateral internal carotid artery and common carotid arteries. No high-grade carotid stenosis. 3. No identified aneurysm. Dictated by: Dictated on workstation # [id number]
[2017-06-15] MEDS ORDERED: MECL-106 PO (15:03)
[2017-06-15] MEDS ORDERED: ACETAMINOPHEN 500 MG TAB (TYLENOL) PO ONE (15:45)
[2017-06-15 16:02] VITALS: BP 155/88
== END 2017-06-15 16:02 | disposition home or self-care (01) ==
LOC: EDUNIT# 11:17 → ER 11:18
DX: R42 Dizziness and giddiness (principal); J45.909 Unspecified asthma, uncomplicated; G43.909 Migraine, unspecified, not intractable, without status migrainosus; K21.9 Gastro-esophageal reflux disease without esophagitis; E03.9 Hypothyroidism, unspecified; E11.9 Type 2 diabetes mellitus without complications; F41.9 Anxiety disorder, unspecified; F32.9 Major depressive disorder, single episode, unspecified; Z79.84 Long term (current) use of oral hypoglycemic drugs; Z77.22 Contact with and (suspected) exposure to environmental tobacco smoke (acute) (chronic); Z87.59 Personal history of other complications of pregnancy, childbirth and the puerperium
CPT/HCPCS: 36415; 70450; 70496; 70498; 71010; 80053; 80306; 80320; 81000; 82550; 82553; 82962; 83735; 83874; 84439; 84443; 84484; 85025; 85379; 93041

== ENCOUNTER → 2017-08-13 | Outpatient (CLI) | payer OTHER ==
[~2017-08-13] MED LIST changes: +MECL-106 PO; +NAPR-915; -NAPR500T4
--- NOTE | 2017-08-13 13:11 | Diagnostic Imaging Report ---
INDICATION: Left arm numbness. Tightness. COMPARISON: None. FINDINGS: Frontal, lateral, open-mouth, and swimmer's views of the cervical spine were obtained. Cervical spine is seen down to the C6 level on the lateral and swimmer's views. Visualized portions of the cervical spine show no evidence acute fracture. Vertebral body heights are maintained. Static alignment is maintained as well. Open-mouth view demonstrates normal C1-C2 alignment. No significant degenerative changes are identified. Surrounding soft tissue structures are unremarkable. Included portions of the lung apices are clear. IMPRESSION: 1. Suboptimal evaluation of the lower cervical spine, but no evidence of acute fracture or dislocation. Dictated by: Dictated on workstation # [id number]
== END ==
LOC: RAD 12:29
PROVIDERS: ATTEND Family Medicine
DX: R20.0 Anesthesia of skin (principal); R20.2 Paresthesia of skin
CPT/HCPCS: 72040

== ENCOUNTER 2018-06-17 17:20 | Emergency (ER) | payer OTHER ==
[~2018-06-17] VITALS: Ht 157.5 cm; Wt 90.3 kg
[~2018-06-17 17:20] MED LIST changes: +HYDR-4226 PO; -HYDR-757 PO
[2018-06-17] MEDS ORDERED: morphine INJ 10 MG/ML 1ML (SYR OR VIAL) ONE (18:05)
[2018-06-17] MEDS ORDERED: ORPHENADRINE 60 MG/2 ML (NORFLEX) AMP ONE (18:06)
[2018-06-17] MEDS ORDERED: morphine INJ 10 MG/ML 1ML (SYR OR VIAL) IVP STA (18:08)
[2018-06-17] MEDS ORDERED: ORPHENADRINE 60 MG/2 ML (NORFLEX) AMP IV STA (18:08)
--- NOTE | 2018-06-17 18:15 | ED Fall/Injury ---
General Chief Complaint: Lower Extremity Stated Complaint: FALL Nursing Triage Note: Pt brought to ED via EMS. Pt reports bowling and falling on the L side. Pt reports leg went out in front of pt and pt went down. Pt c/o L hip and posterior femur pain. Pt very anxious and hyperventilating during assessment. Source: patient Exam Limitations: no limitations History of Present Illness Date Seen by Provider: Jun 17, 2018 Time Seen by Provider: 17:47 Initial Comments 53-year-old female patient presents to the emergency department with complaints of slipping while bowling and doing the splits. She then reports falling onto the left hip. Denies hitting her head, LOC, neck pain, back pain, bowel incontinence, or bladder incontinence. Location Injury Occurred: [place] Occurred: just prior to arrival Injuries/Pain Location: pelvis, lower extremity Context: slipped Loss of Consciousness: no loss of consciousness Modifying Factors: Improves With Immobilization; Worse With Movement Allergies and Home Medications Allergies Coded Allergies: Neuromuscular Blockers, Steroidal (Unverified Allergy, Unknown, 07/02/16) Home Medications Glimepiride 4 Mg Tablet, 2 MG PO DAILY, (Reported) take 1/2 of 4mg tab Hydrocodone Bit/Acetaminophen 1 Each Tablet, 1 EACH PO BID PRN for PAIN Prescribed by: TODD RUFFIN on 11/14/16 1157 Hydrocodone/Acetaminophen 1 Each Tablet, 1 EACH PO Q4H PRN for PAIN-MODERATE Prescribed by: BRENNA FERNANDEZ on 06/17/182011 Lisinopril 10 Mg Tablet, 10 MG PO DAILY, (Reported) Meclizine HCl 25 Mg Tablet, 25 MG PO Q4H PRN for VERTIGO Prescribed by: BRENNA FERNANDEZ on 06/15/17 1503 Patient Home Medication List Home Medication List Reviewed: Yes Review of Systems Review of Systems Constitutional: no symptoms reported Eyes: No Symptoms Reported Ears, Nose, Mouth, Throat: no symptoms reported Respiratory: no symptoms reported Cardiovascular: no symptoms reported Gastrointestinal: no symptoms reported Genitourinary: no symptoms reported Musculoskeletal: see HPI; No back pain; joint pain (bilateral hip pain radiating to the bilateral knees); No joint swelling, No neck pain Skin: no symptoms reported Psychiatric/Neurological: Denies Headache, Denies Numbness, Denies Paresthesia , Denies Tingling, Denies Weakness All Other Systems Reviewed Negative Unless Noted: Yes (Negative excepted noted.) Past Divrlxs-Adafeh-Kttvcy Hx Past Med/Social Hx: Reviewed Nursing Past Med/Soc Hx Patient Social History 2nd Hand Smoke Exposure: Yes Recent Foreign Travel: No Contact w/Someone Who Travel: No Recent Infectious Disease Expo: No Recent Hopitalizations: No Immunizations Up To Date Tetanus Booster (TDap): Unknown Date of Pneumonia Vaccine: Mar 26, 2016 Date of Influenza Vaccine: Mar 26, 2016 Seasonal Allergies Seasonal Allergies: Yes Past Medical History Surgeries: Yes ( X 2) Section, Gallbladder Respiratory: Yes Asthma Cardiac: Yes ("light heart attack" 15 years ago.) Heart Murmur Neurological: Yes Headaches /Migraines, Vertigo 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 Sexually Transmitted Disease: No HIV/AIDS: No Genitourinary: No Gastrointestinal: Yes Gastroesophageal Reflux Musculoskeletal: Yes (chronic neck pain and chronic left arm pain.) Arthritis, Chronic Back Pain Endocrine: Yes Hypothyroidsim, Diabetes, Non-Insulin dep HEENT: No Loss of Vision: Bilateral Hearing Impairment: Denies Cancer: No Psychosocial: Yes Anxiety, Depression Integumentary: No Blood Disorders: No Adverse Reaction/Blood Tranf: No (N/A) Family Medical History Reviewed Nursing Family Hx No Pertinent Family Hx Physical Exam Vital Signs Vital Signs - First Documented 06/17/18 17:39 Temp 98.7 Pulse 70 Resp 32 B/P (MAP) 172/96 (121) Pulse Ox 100 O2 Delivery Room Air Capillary Refill : Less Than 3 Seconds Height, Weight, BMI Height: 5'2.00" Weight: 199lbs. 0oz. 90.498712po; 34.8 BMI Method:Stated General Appearance: WD/WN, no apparent distress HEENT: PERRL/EOMI, pharynx normal Neck: supple, normal inspection Cardiovascular: normal peripheral pulses, regular rate, rhythm, no edema, no murmur Respiratory: lungs clear, normal breath sounds, no respiratory distress, no accessory muscle use Peripheral Pulses: 2+ Dorsalis Pedis (R), 2+ Left Dors-Pedis (L), 2+ Radial Pulses (R), 2+ Radial Pulses (L) Gastrointestinal: normal bowel sounds, non tender, soft, no organomegaly; No distended Pelvic: normal external exam (no evidence of ecchymosis, tears, or lacerations. ) Back: normal inspection, no CVA tenderness, no vertebral tenderness Extremities: no pedal edema, normal capillary refill, pelvis stable, other ( bilateral anterior hips and proximal femurs TTP without deformity, swelling, or ecchymosis. limited ROM to the bilateral hips. no tenderness/deformity/ swelling/ecchymosis of the bilateral knees, tib/fib, ankles, or feet.) Neurologic/Psychiatric: healthcare interpreter II-XII nml as tested, no motor/sensory deficits, alert, normal mood/affect, oriented x 3 Skin: normal color, warm/dry; No ecchymosis (no evidence of trauma noted.) Manish Coma Score Best Eye Response: (4) Open Spontaneously Best Verbal Response: (5) Oriented Best Motor Response: (6) Obeys Commands Manish Total: 15 Progress/Results/Core Measures Results/Orders My Orders Orders - BRENNA FERNANDEZ Pelvis (06/17/18 18:08) Morphine Injection (Morphine Injection (06/17/18 18:08) Orphenadrine Injection (Norflex Injectio (06/17/18 18:08) Femur, Bilateral, 2 Views (06/17/18 19:04) Hydromorphone Injection (Dilaudid Inject (06/17/18 19:12) Rx-Hydrocodone/Apap 5-325 Mg (Rx-Vicodin (06/17/18 20:45) Vital Signs/I&O 06/17/18 06/17/18 17:39 21:07 Temp 98.7 98.7 Pulse 70 68 Resp 32 17 B/P (MAP) 172/96 (121) 102/53 (69) Pulse Ox 100 100 O2 Delivery Room Air Room Air Blood Pressure Mean: 121 Diagnostic Imaging Diagonstic Imaging: Xray Plain Films/CT/US/NM/MRI: pelvis Comments PELVIS INDICATION: Bowling and falling on left side, now with left hip and posterior femur pain. TECHNIQUE: AP pelvis 6:18 PM CORRELATION STUDY: None FINDINGS: Examination is somewhat compromised by soft tissue attenuation. However, the pelvis appears to be intact without evidence for acute displaced pelvic fracture. SI joints and pubic symphysis and bilateral hip joints overall appear maintained. There is presence of a moderate amount of distal colonic fecal loading. IMPRESSION: Negative examination of the pelvis. Dictated by: Dictated on workstation # [id number] Reviewed: Reviewed by Me (radiology report reviewed by me) Diagonstic Imaging: Xray Plain Films/CT/US/NM/MRI: other (bilateral femur) Comments FEMUR, BILATERAL, 2 VIEWS INDICATION: Fall with bilateral leg pain. TECHNIQUE: AP and lateral views of the bilateral femurs at 7:45 PM. CORRELATION STUDY: None FINDINGS: There is no acute fracture of either femur. Visualized hip and knees are fairly well-maintained, as well. Small lucency of the right femoral neck may reflect a small synovial herniation pit of no significance. IMPRESSION : 1. Negative for acute bony abnormality of either femur. Dictated by: Dictated on workstation # [id number] Reviewed: Reviewed by Me (radiology report reviewed by me) Departure Impression Primary Impression: Groin strain Qualified Codes: S76.219A - Strain of adductor muscle, fascia and tendon of unspecified thigh, initial encounter Disposition: HOME, SELF-CARE Condition: Improved Departure-Patient Inst. Decision time for Depature: 20:11 Referrals: MARYCRUZ AKERS DO (PCP/Family) Primary Care Physician Patient Instructions: Groin Strain (DC) Add. Discharge Instructions: All discharge instructions reviewed with patient and/or family. Voiced understanding. Medications as instructed. Ibuprofen 800 mg by mouth every 8 hours as needed for pain. Ice packs for 20 minute intervals as needed for pain. Light activity for 5-7 days, then increase activity slowly as tolerated. Follow-up with your family practitioner this week for a recheck, call tomorrow morning for appointment time. Return to the emergency department for worsened symptoms, bowel incontinence, bladder incontinence, or any other concerns. Scripts Hydrocodone/Acetaminophen (Hydrocodone-Acetamin 7.5-325) 1 Each Tablet 1 EACH PO Q4H PRN for PAIN-MODERATE MDD 6, #14 TAB 0 Refills Prov: BRENNA FERNANDEZ 06/17/18 Work/School Note: Work Release Form Date Seen in the Emergency Department: Jun 17, 2018 Return to Work: Jun 20, 2018 Other Restrictions Listed Below: light activity x5-7days, then increase activity as tolerated. BRENNA FERNANDEZ Jun 17, 2018 18:15
--- NOTE | 2018-06-17 18:58 | Diagnostic Imaging Report ---
INDICATION: Bowling and falling on left side, now with left hip and posterior femur pain. TECHNIQUE: AP pelvis 6:18 PM CORRELATION STUDY: None FINDINGS: Examination is somewhat compromised by soft tissue attenuation. However, the pelvis appears to be intact without evidence for acute displaced pelvic fracture. SI joints and pubic symphysis and bilateral hip joints overall appear maintained. There is presence of a moderate amount of distal colonic fecal loading. IMPRESSION: Negative examination of the pelvis. Dictated by: Dictated on workstation # [id number]
[2018-06-17] MEDS ORDERED: HYDROmorphone 2 MG/ML VIAL (DILAUDID) IV STA (19:12)
--- NOTE | 2018-06-17 19:39 | Diagnostic Imaging Report ---
INDICATION: Fall with bilateral leg pain. TECHNIQUE: AP and lateral views of the bilateral femurs at 7:45 PM. CORRELATION STUDY: None FINDINGS: There is no acute fracture of either femur. Visualized hip and knees are fairly well-maintained, as well. Small lucency of the right femoral neck may reflect a small synovial herniation pit of no significance. IMPRESSION: 1. Negative for acute bony abnormality of either femur. Dictated by: Dictated on workstation # [id number]
[2018-06-17] MEDS ORDERED: HYDR-3816 PO (20:12)
[2018-06-17] MEDS ORDERED: RX-HYDROCODONE/APAP 5/325 MG #4 TAB PK PO PRN (20:45)
[2018-06-17 21:07] VITALS: BP 102/53
== END 2018-06-17 21:07 | disposition home or self-care (01) ==
LOC: EDUNIT# 17:20 → ER 17:21
DX: S76.212A Strain of adductor muscle, fascia and tendon of left thigh, initial encounter (principal); M79.604 Pain in right leg; J45.909 Unspecified asthma, uncomplicated; G43.909 Migraine, unspecified, not intractable, without status migrainosus; K21.9 Gastro-esophageal reflux disease without esophagitis; E03.9 Hypothyroidism, unspecified; E11.9 Type 2 diabetes mellitus without complications; F41.9 Anxiety disorder, unspecified; F32.9 Major depressive disorder, single episode, unspecified; R40.2142 Coma scale, eyes open, spontaneous, at arrival to emergency department; R40.2252 Coma scale, best verbal response, oriented, at arrival to emergency department; R40.2362 Coma scale, best motor response, obeys commands, at arrival to emergency department; I25.2 Old myocardial infarction; Z88.8 Allergy status to other drugs, medicaments and biological substances; Z79.4 Long term (current) use of insulin; Z77.22 Contact with and (suspected) exposure to environmental tobacco smoke (acute) (chronic); Z98.890 Other specified postprocedural states; W01.0XXA Fall on same level from slipping, tripping and stumbling without subsequent striking against object, initial encounter; Y93.54 Activity, bowling
CPT/HCPCS: 72170

== ENCOUNTER → 2018-09-09 | Outpatient (CLI) | payer OTHER ==
[~2018-09-09] MED LIST changes: +HYDR-3816 PO
--- NOTE | 2018-09-09 18:47 | Diagnostic Imaging Report ---
INDICATION: Injury to right foot and pain. TIME OF EXAM: 6:07 PM Three views of the right foot were obtained. FINDINGS: Metatarsals are intact. Phalanges appear to be intact. Midfoot and hindfoot are unremarkable. No fractures are seen. IMPRESSION: No acute bony abnormality is detected. Dictated by: Dictated on workstation # [id number]
== END ==
LOC: RAD 17:48
PROVIDERS: ATTEND Family Medicine
DX: S99.921A Unspecified injury of right foot, initial encounter (principal)
CPT/HCPCS: 73630

== ENCOUNTER 2018-10-07 05:02 | Emergency (ER) | payer OTHER ==
[~2018-10-07] VITALS: Ht 157.5 cm; Wt 89.8 kg
[2018-10-07] MEDS ORDERED: NS IV 1000 ML 1,000 ML IV ONE (05:11)
[2018-10-07] MEDS ORDERED: inSUlin (REGULAR) HUMAN 1 UNIT/0.01 ML (CHARGE PER UNIT) IV STA (05:11)
--- NOTE | 2018-10-07 05:18 | ED Fall/Injury ---
General Stated Complaint: FALL Source: patient Exam Limitations: no limitations History of Present Illness Date Seen by Provider: Oct 07, 2018 Time Seen by Provider: 05:03 Initial Comments Here with report of fall at work. She was stripping the floor and slipped. She states that her left leg slipped out and she kind of did the splits. She landed on her left hip and back. She arrived via EMS. The back of her clothing and pants were covered in the stripping solution. EMS noted blood sugar greater than 460. She does have diabetes and currently is under care for that. She is starting a new medicine to help control her blood sugars now. She follows with Dr. Akers. She did not hit her head and did not lose consciousness. Denies other injury. She was able to stand and transfer to the cot per EMS. Occurred: just prior to arrival (approximately 30 minutes ago) Severity: moderate Injuries/Pain Location: pelvis Context: slipped Loss of Consciousness: no loss of consciousness Modifying Factors: Improves With Immobilization; Worse With Movement Associated Symptoms (Fall): No Abdominal Pain, No Chest Pain; Headache (mild); No Muscle Spasms, No Nausea/Vomiting, No Shortness of Air; Trouble Walking Allergies and Home Medications Allergies Coded Allergies: Neuromuscular Blockers, Steroidal (Unverified Allergy, Unknown, 07/02/16) Home Medications Glimepiride 4 Mg Tablet, 2 MG PO DAILY, (Reported) take 1/2 of 4mg tab Hydrocodone Bit/Acetaminophen 1 Each Tablet, 1 EACH PO BID PRN for PAIN Prescribed by: TODD RUFFIN on 11/14/16 1157 Hydrocodone/Acetaminophen 1 Each Tablet, 1 EACH PO Q4H PRN for PAIN-MODERATE Prescribed by: BRENNA FERNANDEZ on 06/17/182011 Lisinopril 10 Mg Tablet, 10 MG PO DAILY, (Reported) Meclizine HCl 25 Mg Tablet, 25 MG PO Q4H PRN for VERTIGO Prescribed by: BRENNA FERNANDEZ on 06/15/17 1503 Patient Home Medication List Home Medication List Reviewed: Yes Review of Systems Review of Systems Constitutional: see HPI; No chills, No fever Eyes: No Symptoms Reported Ears, Nose, Mouth, Throat: no symptoms reported Respiratory: no symptoms reported Cardiovascular: no symptoms reported Gastrointestinal: no symptoms reported Genitourinary: no symptoms reported Musculoskeletal: see HPI, joint pain, muscle pain, muscle stiffness Skin: no symptoms reported Psychiatric/Neurological: See HPI; Denies Numbness, Denies Weakness All Other Systems Reviewed Negative Unless Noted: Yes Past Xbvkquk-Pxuxps-Btxgxh Hx Past Med/Social Hx: Reviewed Nursing Past Med/Soc Hx Patient Social History Alcohol Use: Denies Use Recreational Drug Use: No Smoking Status: Never a Smoker 2nd Hand Smoke Exposure: Yes Recent Hopitalizations: No Immunizations Up To Date Tetanus Booster (TDap): Unknown Date of Pneumonia Vaccine: Mar 26, 2016 Date of Influenza Vaccine: Mar 26, 2016 Seasonal Allergies Seasonal Allergies: Yes Past Medical History Surgeries: Yes ( X 2) Section, Gallbladder Respiratory: Yes Asthma Cardiac: Yes ("light heart attack" 15 years ago.) Heart Murmur Neurological: Yes Headaches /Migraines, Vertigo 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 Sexually Transmitted Disease: No HIV/AIDS: No Genitourinary: No Gastrointestinal: Yes Gastroesophageal Reflux Musculoskeletal: Yes (chronic neck pain and chronic left arm pain.) Arthritis, Chronic Back Pain Endocrine: Yes Hypothyroidsim, Diabetes, Non-Insulin dep HEENT: No Loss of Vision: Bilateral Hearing Impairment: Denies Cancer: No Psychosocial: Yes Anxiety, Depression Integumentary: No Blood Disorders: No Adverse Reaction/Blood Tranf: No (N/A) Family Medical History Reviewed Nursing Family Hx No Pertinent Family Hx Physical Exam Vital Signs Vital Signs - First Documented 10/07/18 05:06 Temp 97.6 Pulse 76 Resp 18 B/P (MAP) 121/91 (101) Pulse Ox 98 O2 Delivery Room Air Capillary Refill : Height, Weight, BMI Height: 5'2.00" Weight: 199lbs. 0oz. 90.985496qq; 34.8 BMI Method:Stated General Appearance: WD/WN, no apparent distress Neck: full range of motion, supple Cardiovascular: regular rate, rhythm, no murmur Respiratory: lungs clear, normal breath sounds Gastrointestinal: non tender, soft Back: normal inspection, no CVA tenderness, no vertebral tenderness Extremities: non-tender, normal inspection, pelvis stable, other (tender to the lateral and anterior aspect of the left leg at the hip) Neurologic/Psychiatric: alert, oriented x 3 Skin: normal color, warm/dry Manish Coma Score Best Eye Response: (4) Open Spontaneously Best Verbal Response: (5) Oriented Best Motor Response: (6) Obeys Commands Progress/Results/Core Measures Results/Orders Lab Results Laboratory Tests Test 10/07/18 05:10 Range/Units White Blood Count 5.5 4.3-11.0 10^3/uL Red Blood Count 4.96 4.35-5.85 10^6/uL Hemoglobin 14.4 11.5-16.0 G/DL Hematocrit 42 35-52 % Mean Corpuscular Volume 84 80-99 FL Mean Corpuscular Hemoglobin 29 25-34 PG Mean Corpuscular Hemoglobin Concent 35 32-36 G/DL Red Cell Distribution Width 12.9 10.0-14.5 % Platelet Count 211 130-400 10^3/uL Mean Platelet Volume 11.0 H 7.4-10.4 FL Neutrophils (%) (Auto) 54 42-75 % Lymphocytes (%) (Auto) 35 12-44 % Monocytes (%) (Auto) 8 0-12 % Eosinophils (%) (Auto) 3 0-10 % Basophils (%) (Auto) 0 0-10 % Neutrophils # (Auto) 3.0 1.8-7.8 X 10^3 Lymphocytes # (Auto) 1.9 1.0-4.0 X 10^3 Monocytes # (Auto) 0.4 0.0-1.0 X 10^3 Eosinophils # (Auto) 0.2 0.0-0.3 10^3/uL Basophils # (Auto) 0.0 0.0-0.1 10^3/uL Sodium Level 135 135-145 MMOL/L Potassium Level 4.1 3.6-5.0 MMOL/L Chloride Level 102 98-107 MMOL/L Carbon Dioxide Level 24 21-32 MMOL/L Anion Gap 9 5-14 MMOL/L Blood Urea Nitrogen 14 7-18 MG/DL Creatinine 0.95 0.60-1.30 MG/DL Estimat Glomerular Filtration Rate > 60 BUN/Creatinine Ratio 15 Calcium Level 9.4 8.5-10.1 MG/DL Corrected Calcium 9.4 8.5-10.1 MG/DL Total Bilirubin 0.2 0.1-1.0 MG/DL Aspartate Amino Transf (AST/SGOT) 14 5-34 U/L Alanine Aminotransferase (ALT/SGPT) 21 0-55 U/L Alkaline Phosphatase 89 40-136 U/L Total Protein 7.0 6.4-8.2 GM/DL Albumin 4.0 3.2-4.5 GM/DL My Orders Orders - IMELDA ARAGON MD Pelvis With Left Hip 2-3 Views (10/07/18 05:11) Cbc With Automated Diff (10/07/18 05:11) Comprehensive Metabolic Panel (10/07/18 05:11) Ns Iv 1000 Ml (Sodium Chloride 0.9%) (10/07/18 05:11) Insulin (Regular) Human (Humulin R (Per (10/07/18 05:11) Hydrocodone/Apap 7.5/325 Tab (Lortab 7. (10/07/18 05:45) Toradol 30 Mg Ivp (10/07/18 05:47) Medications Given in ED Current Medications Medications Dose Ordered Sig/Maryellen Route Start Time Stop Time Status Last Admin Dose Admin Sodium Chloride 1,000 ml @ 0 mls/hr Q0M ONCE IV 10/07/18 05:11 10/07/18 05:13 DC 10/07/18 05:19 1,000 MLS/HR Vital Signs/I&O 10/07/18 05:06 Temp 97.6 Pulse 76 Resp 18 B/P (MAP) 121/91 (101) Pulse Ox 98 O2 Delivery Room Air Progress Progress Note : Progress Note Seen and evaluated. Patient's blood sugar is elevated so we will evaluate that as well as the fall/head pain. IV established by EMS. X-ray of pelvis and left hip ordered. Normal saline 1 L bolus and insulin 10 units IV ordered. Monitor patient. 0545: Hydrocodone 7.5 mg by mouth ordered. Toradol 30 mg IV. X-rays do not show any fracture. Recheck blood sugar. Departure Impression Primary Impression: Strain of left hip Qualified Codes: S76.012A - Strain of muscle, fascia and tendon of left hip, initial encounter Additional Impression: Uncontrolled diabetes mellitus Qualified Codes: E11.65 - Type 2 diabetes mellitus with hyperglycemia Disposition: 01 HOME, SELF-CARE Condition: Stable Departure-Patient Inst. Decision time for Depature: 05:53 Referrals: MARYCRUZ AKERS DO (PCP/Family) Primary Care Physician Patient Instructions: Hyperglycemia, Adult (DC), Muscle Strain (DC) Add. Discharge Instructions: Drink plenty of fluids and take your medicines as previously prescribed. You may take the prescribed pain medicine for pain. If you are taking the prescribed pain medicine do not take Tylenol/acetaminophen. If you're not taking the prescribed pain medicine you may take Tylenol/acetaminophen 1000 mg every 6 hours as needed for pain. You may also take ibuprofen 400 mg every 8 hours as needed for pain but you should limit the ibuprofen due to your diabetes. Follow-up with your Dr. in a few days for recheck. You should follow- up with occupational health today. Call for appointment. Return for worse pain, fever, vomiting, weakness, breathing problems or other concerns as needed. Scripts Hydrocodone Bit/Acetaminophen (Hydrocodone/Acetaminophen 5/325mg Tablet) 1 Tab Tab 1 EACH PO Q4-6HR PRN for PAIN-MODERATE MDD 10, #8 TAB 0 Refills Prov: IMELDA ARAGON MD 10/07/18 IMELDA ARAGON MD Oct 07, 2018 05:18
[2018-10-07 05:21] LABS: BASOPHILS % (AUTO) 0 % (0-10); EOSINOPHILS # (AUTO) 0.2 10^3/uL (0.0-0.3); EOSINOPHILS % (AUTO) 3 % (0-10); HEMATOCRIT 42 % (35-52); HEMOGLOBIN 14.4 G/DL (11.5-16.0); LYMPHOCYTES # (AUTO) 1.9 X 10^3 (1.0-4.0); LYMPHOCYTES % (AUTO) 35 % (12-44); MEAN CORPUSCULAR HEMOGLOBIN 29 PG (25-34); MEAN CORPUSCULAR HGB CONC 35 G/DL (32-36); MEAN CORPUSCULAR VOLUME 84 FL (80-99); MONOCYTES # (AUTO) 0.4 X 10^3 (0.0-1.0); MONOCYTES % (AUTO) 8 % (0-12); NEUTROPHILS % (AUTO) 54 % (42-75); PLATELET COUNT 211 10^3/uL (130-400); RED CELL DISTRIBUTION WIDTH 12.9 % (10.0-14.5); WHITE BLOOD COUNT 5.5 10^3/uL (4.3-11.0)
[2018-10-07 05:38] LABS: ALANINE AMINOTRANSFERASE 21 U/L (0-55); ALKALINE PHOSPHATASE 89 U/L (40-136); BILIRUBIN,TOTAL 0.2 MG/DL (0.1-1.0); BUN/CREATININE RATIO 15; CALCIUM 9.4 MG/DL (8.5-10.1); CARBON DIOXIDE 24 MMOL/L (21-32); CHLORIDE 102 MMOL/L (98-107); CREATININE SERUM 0.95 MG/DL (0.60-1.30); GFR ESTIMATED > 60; POTASSIUM 4.1 MMOL/L (3.6-5.0); SODIUM 135 MMOL/L (135-145)
[2018-10-07] MEDS ORDERED: HYDROcodone/APAP 7.5 MG/325 MG (LORTAB, LORCET PLUS) TABLET PO ONE (05:45)
[2018-10-07] MEDS ORDERED: KETOROLAC 30 MG/ML VIAL IVP STA (05:47)
[2018-10-07 05:49] LABS: GLUCOSE 519 MG/DL (70-105)
[2018-10-07] MEDS ORDERED: ACHD5005 PO (05:56)
--- NOTE | 2018-10-07 06:57 | Diagnostic Imaging Report ---
EXAM: PELVIS WITH LEFT HIP 2-3 VIEWS INDICATION: Fall. Left hip pain. COMPARISON: Bilateral femur radiographs 06/17/2018. FINDINGS: No fracture or malalignment. No suspicious osteoblastic or lytic lesions. Soft tissue shadows are unremarkable. IMPRESSION: Negative left hip radiographs. Dictated by: Dictated on workstation # [id number]
[2018-10-07 07:04] VITALS: BP 137/88
--- NOTE | 2018-10-07 07:31 | NUR ---
PT DISCHARGED JUST AWAITING [facility]
== END 2018-10-07 07:31 | disposition home or self-care (01) ==
LOC: EDUNIT# 05:02 → ER 05:06
DX: S76.012A Strain of muscle, fascia and tendon of left hip, initial encounter (principal); I10 Essential (primary) hypertension; E11.9 Type 2 diabetes mellitus without complications; R40.2142 Coma scale, eyes open, spontaneous, at arrival to emergency department; R40.2252 Coma scale, best verbal response, oriented, at arrival to emergency department; R40.2362 Coma scale, best motor response, obeys commands, at arrival to emergency department; J45.909 Unspecified asthma, uncomplicated; G43.909 Migraine, unspecified, not intractable, without status migrainosus; K21.9 Gastro-esophageal reflux disease without esophagitis; E03.9 Hypothyroidism, unspecified; F41.9 Anxiety disorder, unspecified; F32.9 Major depressive disorder, single episode, unspecified; I25.2 Old myocardial infarction; Z88.8 Allergy status to other drugs, medicaments and biological substances; Z79.4 Long term (current) use of insulin; Z77.22 Contact with and (suspected) exposure to environmental tobacco smoke (acute) (chronic); Z98.890 Other specified postprocedural states; W01.0XXA Fall on same level from slipping, tripping and stumbling without subsequent striking against object, initial encounter; Y92.59 Other trade areas as the place of occurrence of the external cause; Y99.0 Civilian activity done for income or pay
CPT/HCPCS: 36415; 80053; 82962; 85025

== ENCOUNTER 2018-12-05 16:07 | Outpatient (RCR) | payer OTHER | END 2018-12-05 16:40 | disposition home or self-care (01) | PROVIDERS: ATTEND Nurse Practitioner Family | DX: S33.6XXA Sprain of sacroiliac joint, initial encounter (principal); W19.XXXA Unspecified fall, initial encounter; Y92.59 Other trade areas as the place of occurrence of the external cause; Y99.0 Civilian activity done for income or pay ==

== ENCOUNTER 2019-03-21 22:57 | Emergency (ER) | payer BC, OTHER ==
[~2019-03-21] VITALS: Ht 157 cm; Wt 90.5 kg
[2019-03-21 23:24] LABS: BASOPHILS % (AUTO) 0 % (0-10); EOSINOPHILS # (AUTO) 0.1 10^3/uL (0.0-0.3); EOSINOPHILS % (AUTO) 2 % (0-10); HEMATOCRIT 42 % (35-52); HEMOGLOBIN 14.6 G/DL (11.5-16.0); LYMPHOCYTES # (AUTO) 2.1 X 10^3 (1.0-4.0); LYMPHOCYTES % (AUTO) 35 % (12-44); MEAN CORPUSCULAR HEMOGLOBIN 29 PG (25-34); MEAN CORPUSCULAR HGB CONC 35 G/DL (32-36); MEAN CORPUSCULAR VOLUME 83 FL (80-99); MEAN PLATELET VOLUME 10.8 FL (7.4-10.4); MONOCYTES # (AUTO) 0.5 X 10^3 (0.0-1.0); MONOCYTES % (AUTO) 8 % (0-12); NEUTROPHILS # (AUTO) 3.4 X 10^3 (1.8-7.8); NEUTROPHILS % (AUTO) 56 % (42-75); PLATELET COUNT 225 10^3/uL (130-400); RED CELL DISTRIBUTION WIDTH 12.9 % (10.0-14.5); WHITE BLOOD COUNT 6.2 10^3/uL (4.3-11.0)
[2019-03-21 23:33] LABS: INR 0.9 (0.8-1.4)
[2019-03-21 23:43] LABS: ALANINE AMINOTRANSFERASE 27 U/L (0-55); ALBUMIN 4.3 GM/DL (3.2-4.5); ALKALINE PHOSPHATASE 94 U/L (40-136); AMYLASE 39 U/L (25-125); BILIRUBIN,TOTAL 0.3 MG/DL (0.1-1.0); BUN/CREATININE RATIO 19; CALCIUM 9.4 MG/DL (8.5-10.1); CARBON DIOXIDE 21 MMOL/L (21-32); CHLORIDE 101 MMOL/L (98-107); CREATINE KINASE 100 U/L (29-168); CREATININE SERUM 1.04 MG/DL (0.60-1.30); GFR ESTIMATED 55; LIPASE 49 U/L (8-78); MAGNESIUM 1.7 MG/DL (1.6-2.4); POTASSIUM 4.1 MMOL/L (3.6-5.0); SODIUM 134 MMOL/L (135-145); TOTAL PROTEIN 7.5 GM/DL (6.4-8.2)
[2019-03-21] MEDS ORDERED: NS IV 1000 ML 1,000 ML IV SCH (23:46)
[2019-03-21 23:52] LABS: BILIRUBIN,URINE NEGATIVE (NEGATIVE); CLARITY,URINE CLEAR; COLOR,URINE YELLOW; GLUCOSE 418 MG/DL (70-105); GLUCOSE, URINE (UA) 4+ (NEGATIVE); KETONES,URINE NEGATIVE (NEGATIVE); LEUKOCYTE ESTERASE ,URINE NEGATIVE (NEGATIVE); NITRITE,URINE NEGATIVE (NEGATIVE); PH,URINE 5 (5-9); PROTEIN,URINE 2+ (NEGATIVE); UROBILINOGEN,URINE NORMAL (NORMAL)
--- NOTE | 2019-03-22 00:01 | ED General ---
General Chief Complaint: General Problems/Pain Stated Complaint: HEACHACHE, PAIN IN LT SIDE OF FACE Nursing Triage Note: Pt amb to room #5 with c/o headache, nausea, facial/neck pain. Pt reports upon rise this am, she developed pain to her lt side of face radiating down lt side of neck into lt shoulder. Pt reports on this day she experienced numbness and tingling to lt side of face. Pt reports she is unaware if she has taken her evening mediciations. Denies fever. chills, or CP. Nursing Sepsis Screen: No Definite Risk Source of Information: Patient (PT IS LIMITED HISTORIAN--FORGETFUL AND GIVES INCONSISTENT INFORMATION), Old Records History of Present Illness Date Seen by Provider: Mar 21, 2019 Time Seen by Provider: 23:00 Initial Comments PT ARRIVES VIA POV FROM HOME PT WITH MULTIPLE COMPLAINTS FIRST C/O HEADACHE SINCE WAKING THIS AM--HEADACHE ON TOP AND BACK OF HEAD ALSO C/O PAIN TO LEFT SIDE OF FACE, ENTIRE LOWER JAW AND CHIN AREA, AND LEFT SIDE OF NECK DOWN TO LEFT SHOULDER. RATES PAIN 6/10 STATES SHE HAD SOME NUMBNESS AND TINGLING TO LEFT SIDE OF FACE EARLIER TODAY BUT NOW. NO DROOPING OF FACE. NO VISION CHANGES NO DIZZINESS NO MOTOR DEFICITS ANYWHERE, AND NO NUMBNESS/TINGLING ANYWHERE ELSE ON BODY + NAUSEA, NO VOMITING NO DIFFICULTY SWALLOWING OR CHEWING. NO CHEST PAIN NO SHORTNESS OF BREATH NO FEVER NO COUGH PT STATES SHE "GOT WORRIED BECAUSE THEY TOLD ME 15 YEARS AGO I HAD HAD A LIGHT HEART ATTACK" --PT HAD CARDIAC CATH AND RENAL ARTERY ANGIOGRAM IN 2014 AND WAS COMPLETELY NORMAL. 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 AKERS'S OFFICE AND RX FOR XANAX WAS CALLED IN PT STATES SHE HAS NOT BEEN TAKING IT, BECAUSE SHE DOESN'T WANT TO TAKE IT WITH FLEXERIL AND BECAUSE SHE HAS TO DRIVE. SYMPTOMS ARE NO DIFFERENT TONIGHT HAS NOT TAKEN ANYTHING ELSE FOR SYMPTOMS TODAY. ON ARRIVAL , PT STATES SHE HAS NOT HAD ANY OF THESE SYMPTOMS BEFORE LATER DURING ER STAY, SHE NOW STATES THAT PAIN BEGINS IN RIGHT POSTERIOR/LATERAL NECK, "AND SHOOTS ALL THE WAY ACROSS MY FACE AND MY JAW AND THEN GOES DOWN TO MY LEFT SHOULDER" "IT DOES THIS ALL THE TIME WHENEVER I'M STRESSED AND I'VE BEEN UNDER ALOT OF STRESS LATELY" "THIS IS WHAT IT'S LIKE EVERY TIME" PCP: DR. AKERS Allergies and Home Medications Allergies Coded Allergies: Neuromuscular Blockers, Steroidal (Unverified Allergy, Unknown, 07/02/16) Home Medications Glimepiride 4 Mg Tablet, 2 MG PO DAILY, (Reported) take 1/2 of 4mg tab Hydrocodone Bit/Acetaminophen 1 Each Tablet, 1 EACH PO BID PRN for PAIN Prescribed by: TODD RUFFIN on 11/14/16 1157 Hydrocodone Bit/Acetaminophen 1 Tab Tab, 1 EACH PO Q4-6HR PRN for PAIN-MODERATE Prescribed by: IMELDA ARAGON on 10/07/18 0556 Hydrocodone/Acetaminophen 1 Each Tablet, 1 EACH PO Q4H PRN for PAIN-MODERATE Prescribed by: BRENNA FERNANDEZ on 06/17/182011 Lisinopril 10 Mg Tablet, 10 MG PO DAILY, (Reported) Meclizine HCl 25 Mg Tablet, 25 MG PO Q4H PRN for VERTIGO Prescribed by: BRENNA FERNANDEZ on 06/15/17 1503 Patient Home Medication List Home Medication List Reviewed: Yes Review of Systems Review of Systems Constitutional: no symptoms reported; No dizziness, No fever EENTM: see HPI; No ear discharge, No hearing loss, No ear pain, No blurred vision, No tearing, No dental problems, No mouth pain, No nose congestion, No throat pain Respiratory: no symptoms reported; No cough, No short of breath Cardiovascular: no symptoms reported; No chest pain, No edema, No palpitations, No syncope Gastrointestinal: see HPI; No abdominal pain; nausea; No vomiting Genitourinary: no symptoms reported Musculoskeletal: see HPI, back pain, joint pain, neck pain Skin: no symptoms reported; No rash Psychiatric/Neurological: See HPI, Anxiety, Headache, Numbness, Paresthesia, Tingling; Denies Weakness Hematologic/Lymphatic: No Symptoms Reported Immunological/Allergic: no symptoms reported Past Ziowymp-Nuzbga-Sibbgu Hx Patient Social History Alcohol Use: Denies Use Recreational Drug Use: No Smoking Status: Never a Smoker 2nd Hand Smoke Exposure: Yes Recent Foreign Travel: No Contact w/Someone Who Travel: No Recent Infectious Disease Expo: No Recent Hopitalizations: No Physical Abuse: No Sexual Abuse: No Mistreated: No Fear: No Immunizations Up To Date Tetanus Booster (TDap): Unknown Date of Pneumonia Vaccine: Mar 26, 2016 Date of Influenza Vaccine: Mar 26, 2016 Seasonal Allergies Seasonal Allergies: Yes Past Medical History Surgeries: Yes ( X 2; CARDIAC CATH WITH RENAL ARTERY ANGIOGRAM IN 2014--NORMAL) Section, Gallbladder Respiratory: Yes Asthma Cardiac: Yes ("light heart attack" 15 years ago, PER PT--CARDIAC CATH WITH RENAL ARTERY ANGIOGRAM IN 2014--COMPLETELY NORMAL. PT IS ADAMANT THAT SHE DOES NOT HAVE HTN, BUT TAKES A BP MEDICATION "ONLY FOR MY KIDNEYS"--PT HAS HAD HTN FOR MANY YEARS, PER OLD RECORDS. 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 History: Menopausal Sexually Transmitted Disease: No HIV/AIDS: No Genitourinary: No Gastrointestinal: Yes Gastroesophageal Reflux Musculoskeletal: Yes (CHRONIC BACK PAIN, CHRONIC NECK PAIN AND CHRONIC LEFT ARM PAIN ) Arthritis, Chronic Back Pain Endocrine: Yes Hypothyroidsim, Diabetes, Non-Insulin dep HEENT: No Loss of Vision: Bilateral Hearing Impairment: Denies Cancer: No Psychosocial: Yes Anxiety, Depression Integumentary: No Blood Disorders: No Adverse Reaction/Blood Tranf: No (N/A) Family Medical History No Pertinent Family Hx Physical Exam Vital Signs Vital Signs - First Documented 03/21/19 23:00 Temp 36.2 Pulse 80 Resp 17 B/P (MAP) 170/85 (113) Pulse Ox 98 O2 Delivery Room Air Capillary Refill : Less Than 3 Seconds Height, Weight, BMI Height: 5'2.00" Weight: 198lbs. 0oz. 89.843027re; 36.00 BMI Method:Stated General Appearance: No Apparent Distress, Obese HEENT: PERRL/EOMI, TMs Normal, Normal ENT Inspection, Pharynx Normal Neck: Full Range of Motion, Supple; No Carotid Bruit, No JVD Respiratory: Normal Breath Sounds, No Accessory Muscle Use, No Respiratory Distress Cardiovascular: Regular Rate, Rhythm, No Edema, No JVD, No Murmur, Normal Peripheral Pulses Gastrointestinal: Non Tender, Soft Back: Normal Inspection, No CVA Tenderness, No Vertebral Tenderness Extremity: Normal Capillary Refill, Normal Inspection, Normal Range of Motion, Non Tender, No Calf Tenderness, No Pedal Edema Neurologic/Psychiatric: Alert, Oriented x3 (BUT IS VERY FORGETFUL), No Motor/Sensory Deficits, Normal 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, 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 Norm as Tested Skin: Normal Color, Warm/Dry; No Rash Progress/Results/Core Measures Suspected Sepsis Recent Fever Within 48 Hours: No Infection Criteria Present: None New/Unexplained Altered Menta: No Sepsis Screen: No Definite Risk SIRS Temperature: Pulse: 80 Respiratory Rate: 17 Laboratory Tests 03/21/19 23:10: White Blood Count 6.2 Blood Pressure 170 /85 Mean: 113 Laboratory Tests 03/21/19 23:10: Creatinine 1.04, INR Comment 0.9, Platelet Count 225, Total Bilirubin 0.3 Results/Orders Lab Results Laboratory Tests Test 03/21/19 23:10 03/21/19 23:26 Range/Units White Blood Count 6.2 4.3-11.0 10^3/uL Red Blood Count 5.01 4.35-5.85 10^6/uL Hemoglobin 14.6 11.5-16.0 G/DL Hematocrit 42 35-52 % Mean Corpuscular Volume 83 80-99 FL Mean Corpuscular Hemoglobin 29 25-34 PG Mean Corpuscular Hemoglobin Concent 35 32-36 G/DL Red Cell Distribution Width 12.9 10.0-14.5 % Platelet Count 225 130-400 10^3/uL Mean Platelet Volume 10.8 H 7.4-10.4 FL Neutrophils (%) (Auto) 56 42-75 % Lymphocytes (%) (Auto) 35 12-44 % Monocytes (%) (Auto) 8 0-12 % Eosinophils (%) (Auto) 2 0-10 % Basophils (%) (Auto) 0 0-10 % Neutrophils # (Auto) 3.4 1.8-7.8 X 10^3 Lymphocytes # (Auto) 2.1 1.0-4.0 X 10^3 Monocytes # (Auto) 0.5 0.0-1.0 X 10^3 Eosinophils # (Auto) 0.1 0.0-0.3 10^3/uL Basophils # (Auto) 0.0 0.0-0.1 10^3/uL Prothrombin Time 13.0 12.2-14.7 SEC INR Comment 0.9 0.8-1.4 Activated Partial Thromboplast Time 33 24-35 SEC Urine Color YELLOW Urine Clarity CLEAR Urine pH 5 5-9 Urine Specific [place] 1.020 1.016-1.022 Urine Protein 2+ H NEGATIVE Urine Glucose (UA) 4+ H NEGATIVE Urine Ketones NEGATIVE NEGATIVE Urine Nitrite NEGATIVE NEGATIVE Urine Bilirubin NEGATIVE NEGATIVE Urine Urobilinogen NORMAL NORMAL MG/DL Urine Leukocyte Esterase NEGATIVE NEGATIVE Urine RBC (Auto) NEGATIVE NEGATIVE Urine RBC 0-2 /HPF Urine WBC NONE /HPF Urine Squamous Epithelial Cells 10-25 H /HPF Urine Crystals NONE /LPF Urine Bacteria TRACE /HPF Urine Casts NONE /LPF Urine Mucus NEGATIVE /LPF Urine Culture Indicated NO Sodium Level 134 L 135-145 MMOL/L Potassium Level 4.1 3.6-5.0 MMOL/L Chloride Level 101 98-107 MMOL/L Carbon Dioxide Level 21 21-32 MMOL/L Anion Gap 12 5-14 MMOL/L Blood Urea Nitrogen 20 H 7-18 MG/DL Creatinine 1.04 0.60-1.30 MG/DL Estimat Glomerular Filtration Rate 55 BUN/Creatinine Ratio 19 Glucose Level 418 *H 70-105 MG/DL Calcium Level 9.4 8.5-10.1 MG/DL Corrected Calcium 9.2 8.5-10.1 MG/DL Magnesium Level 1.7 1.6-2.4 MG/DL Total Bilirubin 0.3 0.1-1.0 MG/DL Aspartate Amino Transf (AST/SGOT) 19 5-34 U/L Alanine Aminotransferase (ALT/SGPT) 27 0-55 U/L Alkaline Phosphatase 94 40-136 U/L Total Creatine Kinase 100 29-168 U/L Creatine Kinase MB 1.3 <6.6 NG/ML Troponin I < 0.028 <0.028 NG/ML B-Type Natriuretic Peptide < 10.0 <100.0 PG/ML Total Protein 7.5 6.4-8.2 GM/DL Albumin 4.3 3.2-4.5 GM/DL Amylase Level 39 25-125 U/L Lipase 49 8-78 U/L Free Thyroxine 0.85 0.70-1.48 NG/DL TSH [place] Testing 6.03 H 0.35-4.94 UIU/ML Urine Opiates Screen NEGATIVE NEGATIVE Urine Oxycodone Screen NEGATIVE NEGATIVE Urine Methadone Screen NEGATIVE NEGATIVE Urine Propoxyphene Screen NEGATIVE NEGATIVE Urine Barbiturates Screen NEGATIVE NEGATIVE Ur Tricyclic Antidepressants Screen NEGATIVE NEGATIVE Urine Phencyclidine Screen NEGATIVE NEGATIVE Urine Amphetamines Screen NEGATIVE NEGATIVE Urine Methamphetamines Screen NEGATIVE NEGATIVE Urine Benzodiazepines Screen NEGATIVE NEGATIVE Urine Cocaine Screen NEGATIVE NEGATIVE Urine Cannabinoids Screen NEGATIVE NEGATIVE Glucometer 391 H 70-110 MG/DL My Orders Orders - TOMER ROBLES DO Accucheck Stat ONCE (03/21/19 23:13) Ed Iv/Invasive Line Start (03/21/19 23:13) Ekg Tracing (03/21/19 23:13) Monitor-Rhythm Ecg Trace Only (03/21/19 23:13) Chest 1 View, Ap/Pa Only (03/21/19 23:13) Amylase (03/21/19 23:13) BNP (03/21/19 23:13) Cbc With Automated Diff (03/21/19 23:13) Comprehensive Metabolic Panel (03/21/19 23:13) Creatine Kinase (03/21/19 23:13) Creatine Kinase Mb (03/21/19 23:13) Lipase (03/21/19 23:13) Magnesium (03/21/19 23:13) Protime With Inr (03/21/19 23:13) Partial Thromboplastin Time (03/21/19 23:13) Thyroid Analyzer (03/21/19 23:13) Troponin I (03/21/19 23:13) Ct Head/Face/Cervical Wo (03/21/19 23:20) Ua Culture If Indicated (03/21/19 23:46) Ed Iv/Invasive Line Start (03/21/19 23:46) Ns Iv 1000 Ml (Sodium Chloride 0.9%) (03/21/19 23:46) Free T4 (Free Thyroxine) (03/21/19 23:10) Drug Screen Stat (Urine) (03/22/19 00:07) Insulin (Regular) Human (Humulin R (Per (03/22/19 00:30) Ketorolac Injection (Toradol Injection) (03/22/19 00:30) Accucheck Stat ONCE (03/22/19 00:46) Medications Given in ED Current Medications Medications Dose Ordered Sig/Maryellen Route Start Time Stop Time Status Last Admin Dose Admin Insulin Human Regular 20 unit ONCE ONCE IV 03/22/19 00:30 03/22/19 00:31 DC 03/22/19 00:26 20 UNIT Ketorolac Tromethamine 30 mg ONCE ONCE IVP 03/22/19 00:30 03/22/19 00:31 DC 03/22/19 00:25 30 MG Vital Signs/I&O 03/21/19 23:00 Temp 36.2 Pulse 80 Resp 17 B/P (MAP) 170/85 (113) Pulse Ox 98 O2 Delivery Room Air Capillary Refill : Less Than 3 Seconds Blood Pressure Mean: 113 Point of Care Testing Finger Stick Blood Glucose: 391 Blood Glucose Action Taken: DR. ROBLES NOTIFIED. Progress Note : Progress Note BP DOWN, HEADACHE IMPROVING GIVEN IV FLUIDS AND INSULIN AND BLOOD GLUCOSE DOWN TO 181 PRIOR TO DISMISSAL PT ADVISED OF THE IMPORTANCE OF TAKING ALL OF HER MEDICATIONS EVERY DAY, AND NOT MISSING DOSES DISCUSSED GETTING A PILL ORGANIZER AND SETTING TIMER ON HER PHONE OR WATCH PT ADVISED TO CHECK BLOOD SUGAR AT LEAST 3 TIMES A DAY AND KEEP DIARY ECG Initial ECG Impression Date: Mar 22, 2019 Initial ECG Impression Time: 23:24 Initial ECG Rate: 73 Initial ECG Rhythm: Normal Sinus Initial ECG Impression: Nonspecific Changes Initial ECG Comparisson: Unchanged (FROM 2017) Diagnostic Imaging Comments CXR--NO ACUTE PROCESS, PENDING RADIOLOGIST REVIEW CT HEAD/MAXILLOFACIALS/CERVICAL SPINE--NO ACUTE PROCESS, CHRONIC CHANGES OF CERVICAL SPINE, MAXILLARY NASAL SPINE FX--PER STAT RAD VIA FAX AT 0042 Reviewed: Reviewed by Me Departure Impression Primary Impression: Headache, tension-type Additional Impressions: Hypertension Uncontrolled diabetes mellitus Hypothyroidism Non-compliance Stress Disposition: HOME, SELF-CARE Condition: Improved Departure-Patient Inst. Referrals: MARYCRUZ AKERS DO (PCP) Primary Care Physician Patient Instructions: Chronic Pain (DC), Diabetes Type 2 (DC), Hypothyroidism (Underactive Thyroid) (DC), Headache, Adult (DC), How to Keep Track of Your Blood Sugar, Tips to Help You Worry Less, Helping You [place], High Blood Pressure (DC), Low Salt Diet, DASH Diet, Diabetes and Diet, Tension Headache (DC) Add. Discharge Instructions: HOME, REST TAKE YOUR XANAX PRESCRIBED, NEEDED FOR ANXIETY TAKE ALL OF YOUR MEDICATIONS EXACTLY PRESCRIBED EVERY DAY. USE A DAILY PILL ORGANIZER, AND A TIMER ON YOUR PHONE OR WATCH CHECK YOUR BLOOD SUGAR 3 TIMES A DAY EVERY DAY AND KEEP DIARY TYLENOL AND MOTRIN NEEDED FOR PAIN FOLLOW UP WITH DR. AKERS NEXT WEEK FOR FURTHER CARE All discharge instructions reviewed with patient and/or family. Voiced understanding. TOMER ROBLES DO Mar 22, 2019 00:01
[2019-03-22 00:02] LABS: BACTERIA,URINE TRACE /HPF; RBC,URINE 0-2 /HPF
[2019-03-22 00:03] LABS: CREATINE KINASE MB 1.3 NG/ML (<6.6); TSH (THYROID ANALYZER) 6.03 UIU/ML (0.35-4.94)
[2019-03-22 00:27] LABS: AMPHETAMINE SCREEN, URINE NEGATIVE (NEGATIVE); BARBITURATE SCREEN URINE NEGATIVE (NEGATIVE); BENZODIAZEPINES SCREEN URINE NEGATIVE (NEGATIVE); CANNABINOID SCREEN, URINE NEGATIVE (NEGATIVE); COCAINE SCREEN URINE NEGATIVE (NEGATIVE); METHADONE STAT NEGATIVE (NEGATIVE); METHAMPHETAMINE SCREEN URINE S NEGATIVE (NEGATIVE); OPIATE SCREEN URINE NEGATIVE (NEGATIVE); OXYCODONE STAT NEGATIVE (NEGATIVE); PROPOXYPHENE STAT NEGATIVE (NEGATIVE); TRICYCLIC ANTIDEPRESSANTS SCRE NEGATIVE (NEGATIVE)
[2019-03-22] MEDS ORDERED: inSUlin (REGULAR) HUMAN 1 UNIT/0.01 ML (CHARGE PER UNIT) IV ONE (00:30)
[2019-03-22] MEDS ORDERED: KETOROLAC 30 MG/ML VIAL IVP ONE (00:30)
[2019-03-22 00:47] LABS: FREE T4 (FREE THYROXINE) 0.85 NG/DL (0.70-1.48)
[2019-03-22 01:24] VITALS: BP 142/83
--- NOTE | 2019-03-22 05:54 | Diagnostic Imaging Report ---
EXAMINATION: Portable erect AP chest at 1150 PM INDICATION: Neck pain There is shallow inspiration when compared to the prior exam of 06/15/2017. Allowing for this technical factor, the heart size is within normal limits and stable. The lungs are generally clear. There is no evidence for failure, pneumonia or for pleural effusion. The mediastinum is not widened. The osseous structures are intact. IMPRESSION: There is no evidence for an acute cardiopulmonary abnormality on this suboptimal exam. Dictated by: Dictated on workstation # [id number]
--- NOTE | 2019-03-22 06:59 | Diagnostic Imaging Report ---
PROCEDURE: CT head, face, and cervical spine without contrast. TECHNIQUE: Multiple contiguous axial images were obtained through the head, neck, and facial bones without the use of intravenous contrast. Sagittal and coronal reformations through the cervical spine and facial bones were also performed. Auto Exposure Controls were utilized during the CT exam to meet ALARA standards for radiation dose reduction. INDICATION: Neck pain CT HEAD: There is no mass, shift of the midline or hemorrhage to suggest an acute intracranial abnormality. The ventricles are not abnormally dilated and stable in size when compared to the prior exam of 06/15/2017. The bone windows show no evidence for a fracture or for a destructive lesion. The orbits and sinuses are generally unremarkable. IMPRESSION: 1. There is no evidence for an acute intracranial abnormality. When compared to the prior study, there has been no significant change. 2. If clinical concern regarding an underlying abnormality persists, then MRI would be recommended for further study. CT FACIAL BONES: There are no prior studies available for comparison. There is a slightly displaced fracture of the base of the nasal spine. The margins of the fracture line are sclerotic and consequently this injury may well be long-standing in nature. The nasal bone, orbital rims, zygomatic arches and mandible are intact. The sinuses are generally clear. The orbits are symmetrical and within normal limits. IMPRESSION: 1. There is a nondisplaced fracture of the base of the nasal spine. This injury may well be chronic in nature. Clinical follow-up is recommended. 2. There is no acute bony abnormality noted otherwise. CT cervical spine: The reconstructed parasagittal images show straightening of the cervical spine. This may be secondary to muscle spasm and/or positioning. The vertebral body heights are within normal limits and similar in appearance to the prior exam of 05/20/2017. The intervertebral disc spaces are fairly well-maintained. There is no fracture or acute bony abnormality evident. There is no high-grade stenosis identified but there is narrowing of the neural foramen on the right at C5-C6 and C6-C7. These findings are similar to the prior exam. There is no evidence for retropharyngeal edema. The thyroid gland was obscured by artifact. The lung apices are clear. IMPRESSION: There is no evidence for an acute bony abnormality of the cervical spine. Dictated by: Dictated on workstation # [id number]
== END 2019-03-22 01:25 | disposition home or self-care (01) ==
LOC: EDUNIT# 22:57 → ER 23:00
DX: G44.209 Tension-type headache, unspecified, not intractable (principal); I10 Essential (primary) hypertension; E11.9 Type 2 diabetes mellitus without complications; E03.9 Hypothyroidism, unspecified; F43.9 Reaction to severe stress, unspecified; J45.909 Unspecified asthma, uncomplicated; G43.909 Migraine, unspecified, not intractable, without status migrainosus; K21.9 Gastro-esophageal reflux disease without esophagitis; F41.9 Anxiety disorder, unspecified; F32.9 Major depressive disorder, single episode, unspecified; Z91.19 Patient's noncompliance with other medical treatment and regimen; Z88.8 Allergy status to other drugs, medicaments and biological substances; Z77.22 Contact with and (suspected) exposure to environmental tobacco smoke (acute) (chronic); Z95.9 Presence of cardiac and vascular implant and graft, unspecified
CPT/HCPCS: 36415; 70450; 70486; 71045; 72125; 80053; 80306; 81000; 82150; 82550; 82553; 82962; 83690; 83735; 83880; 84439; 84443; 84484; 85025; 85610; 85730; 93005; 93041

== ENCOUNTER → 2019-09-02 | Outpatient (CLI) | payer OTHER ==
[~2019-09-02] MED LIST changes: +GLIM4TAB5 PO; +HYDR-34 PO; -HYDR-3816 PO; -MECL-106 PO; +MECL-149 PO; -RANI-515 PO; +RANI-609 PO
--- NOTE | 2019-09-02 09:44 | Diagnostic Imaging Report ---
PROCEDURE: MRI lumbar spine. TECHNIQUE: Multiplanar, multisequence MRI of the lumbar spine was performed without contrast. INDICATION: Chronic low back pain. FINDINGS: The curvature and alignment of the lumbar spine are normal. The vertebral body heights are maintained. The marrow signal intensity is unremarkable. There is some degenerative disc disease at the L4-5 level with disc desiccation and disc space narrowing. The conus is unremarkable at the L1 level. T12-L1: The central canal is widely patent. The neuroforamina are widely patent. L1-2: The central canal and neuroforamina are widely patent. L2-3: The central canal and neuroforamina are widely patent. L3-4: The central canal and neuroforamina are widely patent. L4-5: There is a broad-based disc/osteophyte complex as well as a small wide-based midline disc bulge. This indents the ventral thecal sac. No significant central canal narrowing is seen. There is also some ligamentous thickening as well as hypertrophic facet changes. There is mild bilateral neuroforaminal narrowing. L5-S1: Hypertrophic facet changes are noted. The central canal is widely patent. There does appear to be some [id number] left neuroforaminal narrowing. The paraspinous tissues are unremarkable. IMPRESSION: Lower lumbar spondylosis. There is a small midline disc bulge at L4-5 with mild bilateral neuroforaminal narrowing. There is also left neuroforaminal narrowing at L5-S1. Dictated by: Dictated on workstation # [id number]
== END ==
LOC: RAD 08:13
PROVIDERS: ATTEND Orthopaedic Surgery
DX: M47.816 Spondylosis without myelopathy or radiculopathy, lumbar region (principal)
CPT/HCPCS: 72148

== ENCOUNTER 2021-09-12 16:01 | Emergency (ER) | payer SELFPAY ==
[~2021-09-12] VITALS: Ht 157 cm; Wt 96.0 kg
[~2021-09-12 16:01] MED LIST changes: +ALPR.25T; -ALPR0.254; +CYCL10TA25 PO; -LISI10TA2 PO; +LISI10TA25 PO
--- NOTE | 2021-09-12 16:35 | ED General ---
General Chief Complaint: Glucose Problems Stated Complaint: HIGH BLOOD SUGAR Nursing Triage Note: PT ARRIVES TO ER VIA W/C WITH VISITOR. PT REFERRED TO ER FROM CLINIC. REPORTS BLOOD SUGAR WAS IN 400'S SO SOUGHT TX AT CLINIC, AT CLINIC GLUCOSE READING 'HIGH', PT INSTRUCTED TO COME TO ER FOR FURTHER EVAL. PT REPORTS ABOUT A MONTH AGO HER LANTUS WAS CHANGED TO 14 UNITS IN AM AND PM, REPORTS ALSO IN VICTOZA '0.6 EVERY DAY'. GLUCOSE UPON ARRIVAL 364. Source of Information: Patient Exam Limitations: No Limitations (RENZO MALIN STUDENT) History of Present Illness Date Seen by Provider: Sep 12, 2021 Time Seen by Provider: 16:18 Initial Comments Patient presents to the ED after being seen at [facility] clinic for complaints of headache and hyperglycemia. Reports she developed a headache yesterday which re solved over night. This am around 0100 developed a worsening headache which has been worsening throughout the day. Around 1pm she checked her blood sugar and it was around 450. She then presented to the clinic to be evaluated for the headache and hyperglycemia. Reports that upon presentation at [facility] they were unable to register a blood sugar so they advised she be seen in the ED. Currently reports the headache to be unilateral and right sided. Describes the pain as a constant throbbing. Took nothing at home for the headache. Nothing makes it worse. Ibuprofen and tylenol usually improve her headaches at home. Denies nausea, vomiting, visual changes, SOB, chest pain, dysuria, and fevers. Denies recent illness or sick contacts. Has been taking her lantus and victoza as prescribed. Tolerating diet at home well. Timing/Duration: 24 Hours Severity: Moderate Associated Systoms: No Chest Pain, No Cough, No Fever/Chills; Headaches; No Loss of Appetite, No Nausea/Vomiting, No Rash, No Shortness of Air (RENZO MALIN STUDENT) Allergies and Home Medications Allergies Coded Allergies: Neuromuscular Blockers, Steroidal (Unverified Allergy, Unknown, 07/02/16) Patient Home Medication List Home Medication List Reviewed: Yes (ISIDORO HINES) Glimepiride (Glimepiride) 4 Mg Tablet, 2 MG PO DAILY, (Reported) Entered as Reported by: HAY TAPIA on 11/09/16 1430 Hydrocodone Bit/Acetaminophen (Lortab 5 Mg Tablet) 1 Each Tablet, 1 EACH PO BID PRN for PAIN Prescribed by: TODD RUFFIN on 11/14/16 1157 Hydrocodone Bit/Acetaminophen (HYDROcodone/APAP 7.5/325 TAB) 1 Each Tablet, 1 EACH PO Q4H PRN for PAIN-MODERATE Prescribed by: BRENNA FERNANDEZ on 06/17/182011 Hydrocodone Bit/Acetaminophen (Lortab 5 Mg Tablet) 1 Tab Tab, 1 EACH PO Q4-6HR PRN for PAIN-MODERATE Prescribed by: IMELDA ARAGON on 10/07/18 0556 Lisinopril (Lisinopril) 10 Mg Tablet, 10 MG PO DAILY, (Reported) Entered as Reported by: PERNELL SAUCEDO on 06/15/17 1136 Meclizine HCl (Meclizine HCl) 25 Mg Tablet, 25 MG PO Q4H PRN for VERTIGO Prescribed by: BRENNA FERNANDEZ on 06/15/17 1503 Review of Systems Review of Systems Constitutional: No chills, No dizziness, No fever; malaise EENTM: no symptoms reported; No ear discharge, No blurred vision, No double vision, No vision loss, No nose congestion Respiratory: no symptoms reported; No cough, No short of breath Cardiovascular: no symptoms reported; No chest pain, No edema, No palpitations Gastrointestinal: No abdominal pain; constipation; No diarrhea, No nausea, No vomiting Genitourinary: no symptoms reported; No decreased output, No discharge, No dysuria Musculoskeletal: no symptoms reported; No back pain, No joint pain, No joint swelling Skin: no symptoms reported; No change in color, No change in hair/nails Psychiatric/Neurological: No Symptoms Reported; Denies Anxiety, Denies Depress ed; Headache; Denies Numbness, Denies Seizure, Denies Tingling, Denies Weakness Hematologic/Lymphatic: No Symptoms Reported; Denies Easy Bleeding, Denies Easy Bruising Immunological/Allergic: no symptoms reported (RENZO MALIN MED STUDENT) All Other Systems Reviewed Negative Unless Noted: Yes (RENZO MALIN STUDENT) Past Yytyvqg-Bcnapp-Dpdvuq Hx Patient Social History Tobacco Use?: No Smoking Status: Never a Smoker Smokeless Tobacco Frequency: Never a User Use of E-Cig and/or Vaping dev: No Use of E-Cig and/or Vaping Scott: Never a User Substance use?: No Alcohol Use?: No Pt feels they are or have been: No (RENZO AMLIN Crowd Cast CHRIS) Immunizations Up To Date Tetanus Booster (TDap): Unknown Influenza Vaccine Up-to-Date: Yes; Up-to-Date First/Initial COVID19 Vaccinat: NO (RENZO MALIN [employer]d [employer] CHRIS) Seasonal Allergies Seasonal Allergies: Yes (RENZO MALIN) Past Medical History Surgeries: Yes ( X 2; CARDIAC CATH WITH RENAL ARTERY ANGIOGRAM IN 2015--NORMAL) Section, Gallbladder Respiratory: Yes Asthma Cardiac: Yes Heart Attack, Heart Murmur, High Cholesterol, Hypertension Neurological: Yes Headaches /Migraines, Vertigo 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 Sexually Transmitted Disease: No HIV/AIDS: No Genitourinary: No Gastrointestinal: Yes Gastroesophageal Reflux Musculoskeletal: Yes (CHRONIC BACK PAIN, CHRONIC NECK PAIN AND CHRONIC LEFT ARM PAIN ) Arthritis, Chronic Back Pain Endocrine: Yes Diabetes, Insulin dep, Hypothyroidsim HEENT: No Loss of Vision: Denies Hearing Impairment: Denies Cancer: No Psychosocial: Yes Anxiety, Depression Integumentary: No Blood Disorders: No Adverse Reaction/Blood Tranf: No (N/A) (RENZO MALIN) Family Medical History No Pertinent Family Hx (RENZO MALIN) Physical Exam Vital Signs Vital Signs - First Documented 09/12/21 16:05 Temp 35.8 Pulse 99 Resp 20 B/P (MAP) 122/86 (98) Pulse Ox 97 O2 Delivery Room Air (ISIDORO HINES) Vital Signs Capillary Refill : (RENZO MALIN [employer] CHRIS) Height, Weight, BMI Height: 5'2.00" Weight: 198lbs. 0oz. 89.254011rd; 38.00 BMI Method:Stated General Appearance: No Apparent Distress, Chronically ill, Obese Eyes: Bilateral Eye Normal Inspection, Bilateral Eye PERRL, Bilateral Eye EOMI HEENT: PERRL/EOMI, Pharynx Normal, Moist Mucous Membranes Neck: Full Range of Motion, Normal Inspection, Non Tender, Supple Respiratory: Chest Non Tender, Lungs Clear, Normal Breath Sounds, No Accessory Muscle Use Cardiovascular: Regular Rate, Rhythm, No Murmur, Normal Peripheral Pulses Gastrointestinal: Normal Bowel Sounds, Non Tender, Soft Rectal: Deferred Back: Normal Inspection, No Vertebral Tenderness Extremity: Normal Capillary Refill, Normal Inspection, Non Tender, No Calf Tenderness, No Pedal Edema Neurologic/Psychiatric: Alert, Oriented x3, No Motor/Sensory Deficits, Normal Mood/Affect Skin: Normal Color, Warm/Dry Lymphatic: No Adenopathy (Head and Neck) (RENZO MALIN STUDENT) Progress/Results/Core Measures Suspected Sepsis SIRS Temperature: Pulse: 99 Respiratory Rate: 20 Blood Pressure 122 /86 Mean: 98 (RENZO MALIN Crowd [employer] STUDENT) Results/Orders Lab Results Laboratory Tests Test 09/12/21 16:15 09/12/21 16:30 09/12/21 16:31 09/12/21 16:59 Range/Units Glucometer 364 H 70-110 MG/DL White Blood Count 6.7 4.3-11.0 10^3/uL Red Blood Count 5.16 H 3.80-5.11 10^6/uL Hemoglobin 14.6 11.5-16.0 g/dL Hematocrit 44 35-52 % Mean Corpuscular Volume 85 80-99 fL Mean Corpuscular Hemoglobin 28 25-34 pg Mean Corpuscular Hemoglobin Concent 33 32-36 g/dL Red Cell Distribution Width 12.2 10.0-14.5 % Platelet Count 237 130-400 10^3/uL Mean Platelet Volume 10.6 9.0-12.2 fL Immature Granulocyte % (Auto) 0 % Neutrophils (%) (Auto) 57 42-75 % Lymphocytes (%) (Auto) 33 12-44 % Monocytes (%) (Auto) 6 0-12 % Eosinophils (%) (Auto) 3 0-10 % Basophils (%) (Auto) 0 0-10 % Neutrophils # (Auto) 3.8 1.8-7.8 10^3/uL Lymphocytes # (Auto) 2.2 1.0-4.0 10^3/uL Monocytes # (Auto) 0.4 0.0-1.0 10^3/uL Eosinophils # (Auto) 0.2 0.0-0.3 10^3/uL Basophils # (Auto) 0.0 0.0-0.1 10^3/uL Immature Granulocyte # (Auto) 0.0 0.0-0.1 10^3/uL Sodium Level 134 L 135-145 MMOL/L Potassium Level 4.3 3.6-5.0 MMOL/L Chloride Level 101 98-107 MMOL/L Carbon Dioxide Level 22 21-32 MMOL/L Anion Gap 11 5-14 MMOL/L Blood Urea Nitrogen 9 7-18 MG/DL Creatinine 0.90 0.60-1.30 MG/DL Estimat Glomerular Filtration Rate 75 BUN/Creatinine Ratio 10 Glucose Level 380 H 70-105 MG/DL Calcium Level 9.2 8.5-10.1 MG/DL Corrected Calcium 9.1 8.5-10.1 MG/DL Magnesium Level 1.9 1.6-2.4 MG/DL Total Bilirubin 0.3 0.1-1.0 MG/DL Aspartate Amino Transf (AST/SGOT) 32 5-34 U/L Alanine Aminotransferase (ALT/SGPT) 38 0-55 U/L Alkaline Phosphatase 103 40-136 U/L C-Reactive Protein High Sensitivity 0.60 H 0.00-0.50 MG/DL Total Protein 7.4 6.4-8.2 GM/DL Albumin 4.1 3.2-4.5 GM/DL Urine Color YELLOW Urine Clarity CLEAR Urine pH 6.0 5-9 Urine Specific [place] 1.010 L 1.016-1.022 Urine Protein NEGATIVE NEGATIVE Urine Glucose (UA) 3+ H NEGATIVE Urine Ketones NEGATIVE NEGATIVE Urine Nitrite NEGATIVE NEGATIVE Urine Bilirubin NEGATIVE NEGATIVE Urine Urobilinogen 0.2 < = 1.0 MG/DL Urine Leukocyte Esterase NEGATIVE NEGATIVE Urine RBC (Auto) NEGATIVE NEGATIVE Urine RBC NONE /HPF Urine WBC NONE /HPF Urine Squamous Epithelial Cells 0-2 /HPF Urine Crystals NONE /LPF Urine Bacteria NEGATIVE /HPF Urine Casts NONE /LPF Urine Mucus NEGATIVE /LPF Urine Culture Indicated NO Influenza Type A (RT-PCR) Not Detected Not Detecte Influenza Type B (RT-PCR) Not Detected Not Detecte SARS-CoV-2 RNA (RT-PCR) Not Detected Not Detecte Test 09/12/21 17:32 Range/Units Glucometer 267 H 70-110 MG/DL (ISIDORO HINES) My Orders Orders - ISIDORO HINES Accucheck Stat ONCE (09/12/21 16:29) Cbc With Automated Diff (09/12/21 16:29) Comprehensive Metabolic Panel (09/12/21 16:29) Hs C Reactive Protein (09/12/21 16:29) Ua Culture If Indicated (09/12/21 16:29) Insulin (Regular) Human (Novolin R (Per (09/12/21 16:45) Acetaminophen Tablet (Tylenol Tablet) (09/12/21 16:45) Ibuprofen Tablet (Motrin Tablet) (09/12/21 16:45) Covid 19 Inhouse Test (09/12/21 16:40) Influenza A And B By Pcr (09/12/21 16:40) Ed Iv/Invasive Line Start (09/12/21 16:40) Ns Iv 500 Ml (Sodium Chloride 0.9%) (09/12/21 16:45) Magnesium (09/12/21 16:40) Accucheck Stat ONCE (09/12/21 17:18) (ISIDORO HINES) Medications Given in ED Current Medications Medications Dose Ordered Sig/Maryellen Route Start Time Stop Time Status Last Admin Dose Admin Acetaminophen 1,000 mg ONCE ONCE PO 09/12/21 16:45 09/12/21 16:46 DC 09/12/21 16:55 1,000 MG Ibuprofen 800 mg ONCE ONCE PO 09/12/21 16:45 09/12/21 16:46 DC 09/12/21 16:55 800 MG Insulin Human Regular 6 unit ONCE ONCE SC 09/12/21 16:45 09/12/21 16:46 DC 09/12/21 16:56 6 UNIT Sodium Chloride 500 ml @ 0 mls/hr Q0M ONCE IV 09/12/21 16:45 09/12/21 16:46 DC 09/12/21 16:57 0 MLS/HR (ISIDORO HINES) Vital Signs/I&O 09/12/21 09/12/21 16:05 18:03 Temp 35.8 Pulse 99 83 Resp 20 18 B/P (MAP) 122/86 (98) 117/70 Pulse Ox 97 O2 Delivery Room Air Room Air (ISIDORO HINES) Vital Signs/I&O Capillary Refill : (RENZO MALIN MED STUDENT) Blood Pressure Mean: 98 Progress Note #1: Time: 16:44 Progress Note Give her a little bit of fluids check some labs and give her 6 units of regular insulin and recheck her in about an hour after the labs are back. Tylenol Motrin for her headache. Something to drink. COVID and flu swab. I attest that I saw this patient alongside the medical student and agree with his documented history, physical exam and review of systems except as otherwise noted. Progress Note #2: Time: 17:55 Progress Note Patient states her headache is gone and she is feeling much better. Her sugar is coming down nicely. Encouraged her to continue taking her insulin as prescribed and follow-up as needed. (ISIDORO HINES) Departure Impression Primary Impression: Hyperglycemia Additional Impression: Headache Qualified Codes: R51.9 - Headache, unspecified Disposition: 01 HOME, SELF-CARE Condition: Stable Departure-Patient Inst. Decision time for Depature: 17:56 (ISIDORO HINES) Referrals: MARYCRUZ AKERS DO (PCP/Family) Primary Care Physician Patient Instructions: High Blood Sugar, Adult ED Add. Discharge Instructions: Drink plenty of fluids. Continue taking your insulin as prescribed. All discharge instructions reviewed with patient and/or family. Voiced understanding. I was not present in the Department at the time this patient was seen and evaluated. My name was attached to the chart by mistake. I have not seen, evaluated or participated in the care of this patient on this date. (REAL DURBIN MD) RENZO MALIN MED STUDENT Sep 12, 2021 16:35 ISIDORO HINES Sep 12, 2021 16:45 REAL DURBIN MD Sep 14, 2021 06:28
[2021-09-12 16:36] LABS: BASOPHILS % (AUTO) 0 % (0-10); EOSINOPHILS # (AUTO) 0.2 10^3/uL (0.0-0.3); EOSINOPHILS % (AUTO) 3 % (0-10); HEMATOCRIT 44 % (35-52); HEMOGLOBIN 14.6 g/dL (11.5-16.0); LYMPHOCYTES # (AUTO) 2.2 10^3/uL (1.0-4.0); LYMPHOCYTES % (AUTO) 33 % (12-44); MEAN CORPUSCULAR HEMOGLOBIN 28 pg (25-34); MEAN CORPUSCULAR HGB CONC 33 g/dL (32-36); MEAN CORPUSCULAR VOLUME 85 fL (80-99); MEAN PLATELET VOLUME 10.6 fL (9.0-12.2); MONOCYTES # (AUTO) 0.4 10^3/uL (0.0-1.0); MONOCYTES % (AUTO) 6 % (0-12); NEUTROPHILS # (AUTO) 3.8 10^3/uL (1.8-7.8); NEUTROPHILS % (AUTO) 57 % (42-75); PLATELET COUNT 237 10^3/uL (130-400); WHITE BLOOD COUNT 6.7 10^3/uL (4.3-11.0)
[2021-09-12 16:44] LABS: BILIRUBIN,URINE NEGATIVE (NEGATIVE); CLARITY,URINE CLEAR; COLOR,URINE YELLOW; GLUCOSE, URINE (UA) 3+ (NEGATIVE); KETONES,URINE NEGATIVE (NEGATIVE); LEUKOCYTE ESTERASE ,URINE NEGATIVE (NEGATIVE); NITRITE,URINE NEGATIVE (NEGATIVE); PROTEIN,URINE NEGATIVE (NEGATIVE)
[2021-09-12] MEDS ORDERED: ACETAMINOPHEN 500 MG TAB (TYLENOL) PO ONE (16:45)
[2021-09-12] MEDS ORDERED: NS IV 500 ML 500 ML IV ONE (16:45)
[2021-09-12] MEDS ORDERED: inSUlin (REGULAR) HUMAN 1 UNIT/0.01 ML (CHARGE PER UNIT) SC ONE (16:45)
[2021-09-12] MEDS ORDERED: IBUPROFEN 800 MG (MOTRIN) TAB PO ONE (16:45)
[2021-09-12 16:53] LABS: BACTERIA,URINE NEGATIVE /HPF; SQUAMOUS EPITHELIAL CELL,UR 0-2 /HPF
[2021-09-12 16:54] LABS: ALBUMIN 4.1 GM/DL (3.2-4.5); BILIRUBIN,TOTAL 0.3 MG/DL (0.1-1.0); CALCIUM 9.2 MG/DL (8.5-10.1); CREATININE SERUM 0.9 MG/DL (0.60-1.30); POTASSIUM 4.3 MMOL/L (3.6-5.0); TOTAL PROTEIN 7.4 GM/DL (6.4-8.2)
[2021-09-12 18:03] VITALS: BP 117/70
== END 2021-09-12 18:03 | disposition home or self-care (01) ==
LOC: EDUNIT# 16:01 → ER 16:04
DX: R73.9 Hyperglycemia, unspecified (principal); R51.9 Headache, unspecified; E66.9 Obesity, unspecified; Z68.38 Body mass index [BMI] 38.0-38.9, adult; Z20.822 Contact with and (suspected) exposure to COVID-19
CPT/HCPCS: 36415; 80053; 81000; 82947; 83735; 85025; 86141; 87636

== ENCOUNTER 2022-11-06 16:09 | Emergency (ER) | payer OTHER ==
[~2022-11-06] VITALS: Ht 157 cm; Wt 96.5 kg
[2022-11-06] MEDS ORDERED: morphine INJ 10 MG/ML 1ML (SYR OR VIAL) IV STA (16:18)
--- NOTE | 2022-11-06 16:22 | ED Chest Pain ---
General Chief Complaint: Chest Pain Stated Complaint: CHEST PAIN Nursing Triage Note: PT STATES CP SINCE ABOUT 0600, LT CHEST UP IN TO HER NECK AND BETWEEN SHOULDER BLADES. SENT OVER FROM [facility] Source: patient Exam Limitations: no limitations (IRWIN DEMARCO) History of Present Illness Date Seen by Provider: November 06, 2022 Time Seen by Provider: 16:19 Initial Comments Patient is a 57-year-old female with a history of diabetes, hypertension, dyslipidemia, coronary artery disease who presents the ED for chest pain. Chest pain is located to the left side of her chest. She describes the pain as a "muscle strain" and radiates to the chin. Appears to be worse when she bends o brent. Pain does radiate between the shoulder blades. Pain has been fairly constant since 6:00 this morning when she woke up. She states she did vomit yesterday but recently increase her Ozempic. She denies shortness of breath, cough, nausea, diarrhea. She denies any specific injury. No worsening pain with eating. Denies headache, dizziness, visual changes, dysuria, abdominal pain. She denies taking aspirin. No recent travels or surgeries. Denies of any blood disorders. Denies of any leg pain. She states she has a history of of a heart attack that did not require any stents (IRWIN DEMARCO) Allergies and Home Medications Allergies Coded Allergies: Neuromuscular Blockers, Steroidal (Unverified Allergy, Unknown, 07/02/16) Patient Home Medication List Home Medication List Reviewed: Yes (LESIA LEOS DO) Clonazepam (Klonopin) 0.5 Mg Tablet, 0.5 MG PO TID Prescribed by: HUYEN LIZAMA on 11/06/221941 Escitalopram Oxalate (Lexapro) 10 Mg Tablet, 10 MG PO DAILY Prescribed by: HUYEN LIZAMA on 11/06/221941 Glimepiride (Glimepiride) 4 Mg Tablet, 2 MG PO DAILY, (Reported) Entered as Reported by: HAY TAPIA on 11/09/16 1430 Hydrocodone Bit/Acetaminophen (Lortab 5 Mg Tablet) 1 Each Tablet, 1 EACH PO BID PRN for PAIN Prescribed by: TODD RUFFIN on 11/14/16 1157 Hydrocodone Bit/Acetaminophen (HYDROcodone/APAP 7.5/325 TAB) 1 Each Tablet, 1 EACH PO Q4H PRN for PAIN-MODERATE Prescribed by: BRENNA FERNANDEZ on 06/17/182011 Hydrocodone Bit/Acetaminophen (Lortab 5 Mg Tablet) 1 Tab Tab, 1 EACH PO Q4-6HR PRN for PAIN-MODERATE Prescribed by: IMELDA ARAGON on 10/07/18 0556 Lisinopril (Lisinopril) 10 Mg Tablet, 10 MG PO DAILY, (Reported) Entered as Reported by: PERNELL SAUCEDO on 06/15/17 1136 Meclizine HCl (Meclizine HCl) 25 Mg Tablet, 25 MG PO Q4H PRN for VERTIGO Prescribed by: BRENNA FERNANDEZ on 06/15/17 1503 Review of Systems Review of Systems Constitutional: No chills, No diaphoresis, No malaise, No weakness EENTM: No Double Vision, No Eye Pain Respiratory: Denies Cough, Denies Orthopnea, Denies Shortness of Air, Denies SOA at Rest Cardiovascular: Chest Pain Gastrointestinal: Denies Abdominal Pain, Denies Diarrhea; Nausea, Vomiting Genitourinary: Denies Burning, Denies Discharge, Denies Drainage, Denies Frequency Musculoskeletal: No back pain, No joint pain Skin: No change in color, No change in hair/nails (IRWIN DEMARCO) All Other Systems Reviewed Negative Unless Noted: Yes (IRWIN DEMARCO) Past Qtoakut-Vgkxol-Oqxmbh Hx Immunizations Up To Date Tetanus Booster (TDap): Unknown First/Initial COVID19 Vaccinat: NO (IRWIN DEMARCO) Seasonal Allergies Seasonal Allergies: Yes (IRWIN DEMARCO) Past Medical History Surgeries: Yes ( X 2; CARDIAC CATH WITH RENAL ARTERY ANGIOGRAM IN 2015--NORMAL) Section, Gallbladder Respiratory: Yes Asthma Cardiac: Yes Heart Attack, Heart Murmur, High Cholesterol, Hypertension Neurological: Yes Headaches /Migraines, Vertigo 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 Sexually Transmitted Disease: No HIV/AIDS: No Genitourinary: No Gastrointestinal: Yes Gastroesophageal Reflux Musculoskeletal: Yes (CHRONIC BACK PAIN, CHRONIC NECK PAIN AND CHRONIC LEFT ARM PAIN ) Arthritis, Chronic Back Pain Endocrine: Yes Diabetes, Insulin dep, Hypothyroidsim HEENT: No Loss of Vision: Denies Hearing Impairment: Denies Cancer: No Psychosocial: Yes Anxiety, Depression Integumentary: No Blood Disorders: No Adverse Reaction/Blood Tranf: No (N/A) (IRWIN DEMARCO) Family Medical History No Pertinent Family Hx (IRWIN DEMARCO) Physical Exam Vital Signs Vital Signs - First Documented 11/06/22 16:11 Temp 37.0 Pulse 92 Resp 18 B/P (MAP) 126/84 (98) Pulse Ox 97 O2 Delivery Room Air ([facility]) Vital Signs Capillary Refill : Less Than 3 Seconds (IRWIN DEMARCO) Height, Weight, BMI Height: 5'2.00" Weight: 198lbs. 0oz. 89.958116zd; 39.00 BMI Method:Stated General Appearance: No Apparent Distress, WD/WN HEENT: PERRL/EOMI, TMs Normal, Normal ENT Inspection, Pharynx Normal Neck: Full Range of Motion, Normal Inspection, Non Tender, Supple Respiratory: Chest Non Tender, Lungs Clear, Normal Breath Sounds, No Accessory Muscle Use, No Respiratory Distress Cardiovascular: Regular Rate, Rhythm, No Edema, No Gallop, No JVD, No Murmur Gastrointestinal: Normal Bowel Sounds, No Organomegaly, No Pulsatile Mass, Non Tender Extremity: Normal Capillary Refill, Normal Inspection, Normal Range of Motion, Non Tender Neurologic/Psychiatric: Alert, Oriented x3, No Motor/Sensory Deficits, Normal 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, 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 as Tested Skin: Normal Color (IRWIN DEMARCO) Progress/Results/Core Measures Results/Orders Lab Results Laboratory Tests Test 11/06/22 16:20 11/06/22 19:16 Range/Units White Blood Count 8.0 4.3-11.0 10^3/uL Red Blood Count 5.16 H 3.80-5.11 10^6/uL Hemoglobin 14.8 11.5-16.0 g/dL Hematocrit 43 35-52 % Mean Corpuscular Volume 83 80-99 fL Mean Corpuscular Hemoglobin 29 25-34 pg Mean Corpuscular Hemoglobin Concent 35 32-36 g/dL Red Cell Distribution Width 12.3 10.0-14.5 % Platelet Count 292 130-400 10^3/uL Mean Platelet Volume 9.7 9.0-12.2 fL Immature Granulocyte % (Auto) 0 % Neutrophils (%) (Auto) 55 42-75 % Lymphocytes (%) (Auto) 35 12-44 % Monocytes (%) (Auto) 7 0-12 % Eosinophils (%) (Auto) 3 0-10 % Basophils (%) (Auto) 0 0-10 % Neutrophils # (Auto) 4.4 1.8-7.8 10^3/uL Lymphocytes # (Auto) 2.8 1.0-4.0 10^3/uL Monocytes # (Auto) 0.5 0.0-1.0 10^3/uL Eosinophils # (Auto) 0.3 0.0-0.3 10^3/uL Basophils # (Auto) 0.0 0.0-0.1 10^3/uL Immature Granulocyte # (Auto) 0.0 0.0-0.1 10^3/uL Prothrombin Time 13.0 12.2-14.7 SEC INR Comment 1.0 0.8-1.4 Activated Partial Thromboplast Time 35 24-35 SEC D-Dimer 0.56 H 0.00-0.49 UG/ML Sodium Level 134 L 135-145 MMOL/L Potassium Level 3.9 3.6-5.0 MMOL/L Chloride Level 102 98-107 MMOL/L Carbon Dioxide Level 22 21-32 MMOL/L Anion Gap 10 5-14 MMOL/L Blood Urea Nitrogen 8 7-18 MG/DL Creatinine 0.88 0.60-1.30 MG/DL Estimat Glomerular Filtration Rate 77 BUN/Creatinine Ratio 9 Glucose Level 202 H 70-105 MG/DL Calcium Level 9.1 8.5-10.1 MG/DL Corrected Calcium 8.9 8.5-10.1 MG/DL Magnesium Level 1.9 1.6-2.4 MG/DL Total Bilirubin 0.3 0.1-1.0 MG/DL Aspartate Amino Transf (AST/SGOT) 25 5-34 U/L Alanine Aminotransferase (ALT/SGPT) 29 0-55 U/L Alkaline Phosphatase 115 40-136 U/L Myoglobin 32.7 10.0-92.0 NG/ML Troponin I < 0.028 < 0.028 <0.028 NG/ML B-Type Natriuretic Peptide < 10.0 <100.0 PG/ML Total Protein 7.8 6.4-8.2 GM/DL Albumin 4.3 3.2-4.5 GM/DL Lipase 30 8-78 U/L (LESIA LEOS DO) Vital Signs/I&O 11/06/22 11/06/22 16:11 20:14 Temp 37.0 Pulse 92 85 Resp 18 18 B/P (MAP) 126/84 (98) 114/75 Pulse Ox 97 97 O2 Delivery Room Air Room Air (LESIA LEOS DO) Blood Pressure Mean: 98 Comment Sinus rhythm, minimal voltage criteria for LVH, 91 bpm, QRS duration 70 MS, QTc 404 MS (IRWIN DEMARCO) Departure Impression Primary Impression: Chest pain Additional Impression: Anxiety Disposition: 01 HOME, SELF-CARE Condition: Stable Departure-Patient Inst. Decision time for Depature: 17:28 (IRWIN DEMARCO) Referrals: MARYCRUZ AKERS DO (PCP/Family) Primary Care Physician AYE RODNEY MD Patient Instructions: Chest Pain (DC) Add. Discharge Instructions: Take your anxiety medication as prescribed. Follow-up with your financial quantitative analyst for further evaluation. If any worsening symptoms such as chest pain return back to ED All discharge instructions reviewed with patient and/or family. Voiced understanding. Scripts Clonazepam (Klonopin) 0.5 Mg Tablet 0.5 MG PO TID, #6 TAB Prov: IRWIN DEMARCO 11/06/22 Escitalopram Oxalate (Lexapro) 10 Mg Tablet 10 MG PO DAILY, #20 TAB Prov: IRWIN DEMARCO 11/06/22 IRWIN DEMARCO November 06, 2022 16:22 LESIA LEOS DO November 09, 2022 04:49
[2022-11-06 16:28] LABS: BASOPHILS % (AUTO) 0 % (0-10); EOSINOPHILS # (AUTO) 0.3 10^3/uL (0.0-0.3); EOSINOPHILS % (AUTO) 3 % (0-10); HEMATOCRIT 43 % (35-52); HEMOGLOBIN 14.8 g/dL (11.5-16.0); LYMPHOCYTES # (AUTO) 2.8 10^3/uL (1.0-4.0); LYMPHOCYTES % (AUTO) 35 % (12-44); MEAN CORPUSCULAR HEMOGLOBIN 29 pg (25-34); MEAN CORPUSCULAR HGB CONC 35 g/dL (32-36); MEAN CORPUSCULAR VOLUME 83 fL (80-99); MEAN PLATELET VOLUME 9.7 fL (9.0-12.2); MONOCYTES # (AUTO) 0.5 10^3/uL (0.0-1.0); MONOCYTES % (AUTO) 7 % (0-12); NEUTROPHILS # (AUTO) 4.4 10^3/uL (1.8-7.8); NEUTROPHILS % (AUTO) 55 % (42-75); PLATELET COUNT 292 10^3/uL (130-400)
[2022-11-06] MEDS ORDERED: ASPIRIN 81 MG CHEW (CHILDREN'S ASA) PO ONE (16:30)
--- NOTE | 2022-11-06 16:38 | Diagnostic Imaging Report ---
EXAMINATION: Chest 1 view HISTORY: Chest pain COMPARISON: 03/21/2019. FINDINGS: The lungs are clear without edema or pneumonia. No pleural effusion or pneumothorax. Heart size is normal. IMPRESSION: 1. Clear lungs. Dictated by: Dictated on workstation # [id number]
[2022-11-06 16:54] LABS: ALANINE AMINOTRANSFERASE 29 U/L (0-55); ALBUMIN 4.3 GM/DL (3.2-4.5); ALKALINE PHOSPHATASE 115 U/L (40-136); BILIRUBIN,TOTAL 0.3 MG/DL (0.1-1.0); BUN/CREATININE RATIO 9; CALCIUM 9.1 MG/DL (8.5-10.1); CARBON DIOXIDE 22 MMOL/L (21-32); CHLORIDE 102 MMOL/L (98-107); CREATININE SERUM 0.88 MG/DL (0.60-1.30); GFR ESTIMATED 77; GLUCOSE 202 MG/DL (70-105); LIPASE 30 U/L (8-78); MAGNESIUM 1.9 MG/DL (1.6-2.4); POTASSIUM 3.9 MMOL/L (3.6-5.0); SODIUM 134 MMOL/L (135-145); TOTAL PROTEIN 7.8 GM/DL (6.4-8.2)
[2022-11-06] MEDS ORDERED: morphine INJ 10 MG/ML 1ML (SYR OR VIAL) IVP STA (17:02)
[2022-11-06] MEDS ORDERED: LORazepam 0.5 MG (ATIVAN) TABLET PO STA (17:02)
[2022-11-06] MEDS ORDERED: NS IV 1000 ML 1,000 ML IV STA (17:03)
[2022-11-06] MEDS ORDERED: morphine INJ 4 MG/ML 1 ML (VIAL/SYRINGE) ONE (17:05)
[2022-11-06] MEDS ORDERED: NS 100 ML (IVPB) BAG IV ONE (17:15)
[2022-11-06] MEDS ORDERED: clonazePAM 0.5 MG (KlonoPIN) TAB PO ONE (17:15)
[2022-11-06] MEDS ORDERED: IOHEXOL 350 MG/ML 100 ML (OMNIPAQUE 350) VIAL IV ONE (17:15)
--- NOTE | 2022-11-06 17:43 | Diagnostic Imaging Report ---
EXAMINATION: CT angiography of the chest. TECHNIQUE: Contrast enhanced thin section helical images were obtained through the chest with intravenous contrast timed for the optimal opacification of the arterial structures per CTA protocol. Post-processing, reconstructions and interpretation of angiographic images of the vessels was performed. 3D MIP reconstructions were performed and reviewed. All CT scans use one or more of the following dose optimizing techniques: automated exposure control, MA and/or KvP adjustment based on a patient size and exam type, or iterative reconstruction. HISTORY: Chest pain and shortness of breath. COMPARISON: None available. FINDINGS: Vascular: There are no filling defects within the pulmonary arteries. The thoracic aorta is normal in caliber. Thyroid: The thyroid is normal. Mediastinum: Heart size is normal without significant pericardial effusion. No suspicious lymphadenopathy. Lungs and airways: The lungs are clear without consolidation, pleural effusion, or pneumothorax. There is mild atelectasis within the dependent lungs. The airways are normal. Upper abdomen: The subphrenic structures are normal. Musculoskeletal: Degenerative changes of the spine without suspicious osseous lesion or compression fracture. IMPRESSION: 1. No findings of pulmonary embolus or other acute abnormality in the chest. Dictated by: Dictated on workstation # [id number]
[2022-11-06] MEDS ORDERED: ESCI10TA PO (19:42)
[2022-11-06] MEDS ORDERED: CLON0.5T PO (19:42)
[2022-11-06 20:14] VITALS: BP 114/75
== END 2022-11-06 20:14 | disposition home or self-care (01) ==
LOC: EDUNIT# 16:09 → ER 16:10
DX: R07.89 Other chest pain (principal); F41.9 Anxiety disorder, unspecified; E11.9 Type 2 diabetes mellitus without complications; Z79.4 Long term (current) use of insulin; Z28.310 Unvaccinated for COVID-19
CPT/HCPCS: 36415; 71045; 71275; 80053; 83690; 83735; 83874; 83880; 84484; 85025; 85379; 85610; 85730; 93005; 93041